=== PATIENT | female | born 2000 | race Caucasian/White ===

== ENCOUNTER 2021-08-03 10:05 | Outpatient (REF) | payer OTHER, SELFPAY ==
[2021-08-04 07:47] LABS: HBc Num1 0.14 S/CO (0.00-0.79); HIV AB/AG Nonreactive (Nonreactive); HIV Num 1 0.09 S/CO (0.00-0.99); Hepatitis B Core Antibody Nonreactive (Nonreactive); ~Hepatitis C Antibody Nonreactive (Nonreactive)
[2021-08-04 07:56] LABS: Syphilis Screen Nonreactive (Nonreactive)
[2021-08-04 09:09] LABS: BV Int Neg Control Negative (Negative); BV Int Pos Control Positive (Positive)
[2021-08-04 10:32] LABS: CT PCR NOT DETECTED (Not Detect.); NG PCR NOT DETECTED (Not Detect.)
== END 2021-08-03 10:06 | disposition home or self-care (01) ==
LOC: HO.LAB 10:05
PROVIDERS: PCP Pediatrics; Visit Provider Advanced Practice Midwife
DX: B00.9 Herpesviral infection, unspecified (principal); N90.89 Other specified noninflammatory disorders of vulva and perineum; R30.0 Dysuria; N88.9 Noninflammatory disorder of cervix uteri, unspecified; Z11.8 Encounter for screening for other infectious and parasitic diseases; Z11.3 Encounter for screening for infections with a predominantly sexual mode of transmission; Z11.4 Encounter for screening for human immunodeficiency virus [HIV]; Z11.59 Encounter for screening for other viral diseases; F41.8 Other specified anxiety disorders
CPT/HCPCS: 36415; 81003; 86704; 86780; 86803; 87255; 87389; 87480; 87491; 87510; 87591; 87660

== ENCOUNTER → 2021-08-18 09:41 | Outpatient (BNVA) | payer OTHER, SELFPAY | PROVIDERS: PCP Pediatrics; Visit Provider Advanced Practice Midwife ==

== ENCOUNTER 2021-11-08 12:22 | Emergency (ER) | payer OTHER, SELFPAY ==
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
[2021-11-08 14:58] VITALS: BP 128/83; PULSE 84; RESP 16; TEMP 36.3; O2SAT 100; BMI 41.3
--- NOTE | 2021-11-08 15:04 | ECG_ITS ---
Test Reason : CHEST PAIN Blood Pressure : / mmHG Vent. Rate : 072 BPM Atrial Rate : 072 BPM P-R Int : 142 ms QRS Dur : 082 ms QT Int : 376 ms P-R-T Axes : 038 018 021 degrees QTc Int : 411 ms Normal sinus rhythm with sinus arrhythmia Normal ECG When compared with ECG of 07-MAR-2019 06:48, No significant change was found Referred By: Generic ED Physician Electronically Signed By:PEARL MENDEZ MD
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
== END 2021-11-08 18:26 | disposition home or self-care (01) ==
PROVIDERS: Emergency Provider Emergency Medicine; PCP Pediatrics
DX: S39.012A Strain of muscle, fascia and tendon of lower back, initial encounter (principal); S09.90XA Unspecified injury of head, initial encounter; S46.911A Strain of unspecified muscle, fascia and tendon at shoulder and upper arm level, right arm, initial encounter; S20.213A Contusion of bilateral front wall of thorax, initial encounter; G44.309 Post-traumatic headache, unspecified, not intractable; M54.2 Cervicalgia; V43.52XA Car driver injured in collision with other type car in traffic accident, initial encounter; Y93.9 Activity, unspecified; Y92.410 Unspecified street and highway as the place of occurrence of the external cause; Y99.9 Unspecified external cause status; Z79.899 Other long term (current) drug therapy
CPT/HCPCS: 70450; 70486; 71111; 72100; 72125; 73060; 73110; 73130; 93005; 99283; 99284

== ENCOUNTER 2023-04-14 09:40 | Outpatient (AMB) | payer OTHER, SELFPAY ==
--- NOTE | 2023-04-14 10:31 | MHC.OFFWIV ---
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 Patient Tobacco Use Status: Never used Tobacco Allergies No Known Allergies [No Known Allergies*] Allergy (Verified 04/14/23 10:33) Do you need a note to return to daycare/school/sports/work: No HPI HPI Comments History of Present Illness Details This is a 22-year-old female who presents to the office today for sick visit. Patient complaining of right ear pain radiating into her right jaw and right neck. She denies any sore throat. She denies any fevers or chills. She reports mild nasal congestion. Patient is otherwise feeling well. She reports positive sick contact with her sister. [facility] Medical History Asthma Depression with anxiety Family History Maternal Aunt History of breast cancer Social History Alcohol intake: current Alcohol intake frequency: holidays/special occasions only Patient Tobacco Use Status: Never used Tobacco Substance Use Type: Marijuana Sexual orientation: Lesbian/Lockhart/Homosexual Gender identity: Female Female Reproductive History Menstrual Age of Menarche: 14 Review of Systems Const All systems reviewed & are unremarkable except as noted in HPI and below Reports no additional complaints Eyes Reports no additional complaints ENT Reports no additional complaints Card Reports no additional complaints Resp Reports no additional complaints GI Reports no additional complaints Reports no additional complaints Musc Reports no additional complaints Skin/Breast Reports system reviewed and no additional complaints, except as documented Neuro Reports no additional complaints Psych Reports no additional complaints Endo Reports no additional complaints Andrea/Lymph Reports no additional complaints Aller/Immun Reports no additional complaints Physical Exam Vital Signs: Last Vital Signs Temp 96.2 F L 04/14/23 10:34 Pulse 81 04/14/23 10:34 BP 138/78 04/14/23 10:34 Pulse Ox 98 04/14/23 10:34 Oxygen Delivery Method Room Air 04/14/23 10:34 BMI result Body Mass Index 43.6 Const Other: Vital signs reviewed. Constitutional: Non-toxic appearing. No acute distress. Well-developed and well-nourished. HEENT: Normocephalic and atraumatic. Right tympanic membrane is erythematous, edematous, and slightly bulging. There is minimal tenderness to palpation and minimal swelling of the right postauricular region. No erythema of the right postauricular region. External auditory canals without erythema or edema bilaterally. Moist mucous membranes. No pharyngeal erythema or exudates. No peritonsillar mass. Skin: Warm and dry. No rashes or lesions noted. Neck: Full and painless range of motion. No cervical lymphadenopathy. Cardio: Regular rate and rhythm. No murmurs, gallops, or rubs. No lower extremity edema. No JVD. Pulmonary: No respiratory distress. No accessory muscle usage. Clear to auscultation bilaterally without wheezing, crackles, or rhonchi. Gastrointestinal: Soft, nontender, and nondistended in all 4 quadrants. Normoactive bowel sounds in all 4 quadrants. Genitourinary: No CVA tenderness. Musculoskeletal: Normal range of motion in joints throughout the body. No deformity or other signs of injury. Neuro: Alert and oriented x4. Cranial nerves 2-12 grossly intact. No focal deficits appreciated. Psych: Normal mood and affect. Assessment & Plan Assessment & Plan (1) Acute otitis media, right: Code(s): H66.91 - Otitis media, unspecified, right ear Plan: This is a 22-year-old female presenting to the office complaining of right ear pain radiating into her right jaw and right neck. On physical examination, patient has erythema, edema, and bulging of her right tympanic membrane as well as minimal tenderness to palpation and swelling of the right postauricular region. I explained to the patient and her mother my concern for acute mastoiditis that can be a complication of acute otitis media and would require more imaging and IV antibiotics. Patient's vital signs are stable and she is overall nontoxic appearing without any evidence of a systemic infection. I did recommend going to the emergency room for further imaging to rule out acute mastoiditis definitively, but patient and her mother would prefer to try oral antibiotics first. I explained the risks of acute mastoiditis if it goes untreated. Patient and her mother understand the risks. Patient is alert and oriented x4 and in my opinion, she has the competence to make her own medical decisions. Patient would prefer not to go to the emergency room at this time. I will treat the patient's acute otitis media with p.o. amoxicillin clavulanate 875-125 mg twice daily times 10 days. I strongly encouraged the patient to proceed directly to the emergency room at the first sign of any systemic infection including fever/chills or general malaise as well as any worsening or persistent symptoms. Patient verbalized understanding and is agreeable with the plan. Medications: New amoxicillin-pot clavulanate 875-125 mg 1 tab PO BID 20 tabs 0RF Coding Level of Care Code New Pt Level 3 (66265) Diagnoses Acute otitis media, right H66.91
[2023-04-14 10:34] VITALS: BP 138/78; PULSE 81; TEMP 35.7; O2SAT 98; BMI 43.6
== END 2023-04-14 11:01 | disposition home or self-care (01) ==
PROVIDERS: PCP Pediatrics; Visit Provider Physician Assistant Medical
DX: H66.91 Otitis media, unspecified, right ear (principal)
CPT/HCPCS: 99203

== ENCOUNTER 2023-08-16 09:05 | Outpatient (AMB) | payer OTHER, SELFPAY ==
[2023-08-16 09:06] VITALS: BP 112/70; BMI 44.3
--- NOTE | 2023-08-16 09:06 | MHC.OFFVIS ---
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 Doing well with no concerns. She tries to eat healthy and stays active with exercise. Regular monthly menses. Currently is sexually active. Using condoms consistently, she is interested possibly in control. She denies vaginal itching and irritation. STI screening offered; she accepts. Denies family history of breast, ovarian or colon cancer. [facility] Medical History Asthma Depression with anxiety Family History Maternal Aunt History of breast cancer Social History Alcohol intake: current Alcohol intake frequency: holidays/special occasions only Patient Tobacco Use Status: Never used Tobacco Substance Use Type: Marijuana Sexually active: Yes Sexual orientation: Straight/Heterosexual Gender identity: Female Female Reproductive History Menstrual Age of Menarche: 14 Duration of menses: 3-5 days Date of last menstrual period: 08/09/23 control method: none Total pregnancies: 0 Review of Systems Const All systems reviewed & are unremarkable except as noted in HPI and below Reports as per HPI Eyes Reports no additional complaints ENT Reports no additional complaints Card Reports no additional complaints Resp Reports no additional complaints GI Reports as per HPI and Reports no additional complaints Reports as per HPI Musc Reports no additional complaints Skin/Breast Reports as per HPI Neuro Reports no additional complaints Psych Reports no additional complaints Endo Reports no additional complaints Andrea/Lymph Reports no additional complaints Aller/Immun Reports no additional complaints Physical Exam Vital Signs: Last Vital Signs BP 112/70 08/16/23 09:06 BMI result Body Mass Index 44.3 Const General: cooperative, healthy appearing, no acute distress, well developed and alert Orientation/consciousness: patient oriented x3 HEENT Head: Yes normal to inspection Eyes General: appearance normal, both eyes and all related structures Neck Neck: Yes normal visual inspection Thyroid: Thyroid normal Chest Chest palpation & inspection: normal inspection of the chest and other (no puckering, dimpling, peau de orange, retraction, discharge, masses) Breast/axilla inspection: normal inspection of the breasts Breast/axilla palpation: normal palpation of the breasts Resp Effort & Inspection: normal respiratory effort GI Inspection: Yes normal to inspection and Yes obesity Palpation (GI): Soft to palpation Rectal Exam - Female: deferred General: Yes bladder normal to palpation External Female Exam: normal external appearance and normal appearance of the urethra Speculum Exam - Vagina: normal appearance of the vagina, normal palpation and normal vaginal discharge Speculum Exam - Cervix: normal appearance of the cervix and normal palpation Bimanual exam- vagina & uterus: normal bimanual exam, normal palpation, uterine size normal, bladder normal to palpation, normal palpation and non-tender Bimanual Exam- Adnexa, other: no masses Skin General skin exam: no rashes or lesions noted Rashes: no rashes Neuro General: patient oriented x3 Cognition (Neuro): normal cognition Extrem General: Yes normal to inspection Psych Attitude: cooperative Thought process: Normal thought process present Assessment & Plan Assessment & Plan (1) Encounter for well woman exam with routine gynecological exam: Code(s): Z01.419 - Encounter for gynecological examination (general) (routine) without abnormal findings Plan Discussed: Current recommendations for pap smears per ASCCP guidelines. Breast awareness and periodic breast exams. Maintain a healthy lifestyle including a well balanced diet and routine exercise. Recommended Mediterranean style diet-handout given. Use condoms for STI and prevention. control options booklet given. Advised to call for consult when ready to discuss control. Sign of her patient portal. All of her questions and concerns were addressed to the best of my ability. RTO in one year for annual occupational health manager examination. This note is constructed using voice recognition software. While every effort has been made to ensure accuracy, technology engineer errors may have been included. Orders: Orders HIV Ab/Ag Today Z20.2 - Contact with and (suspected) exposure to infections with a predominantly sexual mode of transmission Hepatitis C Antibody Today Z20.2 - Contact with and (suspected) exposure to infections with a predominantly sexual mode of transmission Hepatitis B Core Antibody Today Z20.2 - Contact with and (suspected) exposure to infections with a predominantly sexual mode of transmission Syphilis Screen Today Z20.2 - Contact with and (suspected) exposure to infections with a predominantly sexual mode of transmission Coding Level of Care Code Est Pt Prev Care 18-39y(96081) Diagnoses Encounter for well woman exam with routine gynecological exam Z01.419
== END 2023-08-16 09:31 | disposition home or self-care (01) ==
LOC: HO.HWS 09:05
PROVIDERS: PCP Pediatrics; Visit Provider Advanced Practice Midwife
DX: Z01.419 Encounter for gynecological examination (general) (routine) without abnormal findings (principal)
CPT/HCPCS: 99395

== ENCOUNTER 2023-08-16 09:05 | Outpatient (REF) | payer OTHER, SELFPAY | END 2023-08-16 09:06 | disposition home or self-care (01) | LOC: HO.LNP 09:05 | PROVIDERS: PCP Pediatrics; Visit Provider Advanced Practice Midwife | DX: Z01.419 Encounter for gynecological examination (general) (routine) without abnormal findings (principal) | CPT/HCPCS: 88142; 99395 ==

== ENCOUNTER 2023-08-16 09:35 | Outpatient (REF) | payer OTHER, SELFPAY ==
[2023-08-16 10:54] LABS: HBc Num1 0.16 S/CO (0.00-0.79); HIV AB/AG Nonreactive (Nonreactive); HIV Num 1 0.07 S/CO (0.00-0.99); Hepatitis B Core Antibody Nonreactive (Nonreactive); ~HepC Num1 0.12 S/CO (0.00-0.79); ~Hepatitis C Antibody Nonreactive (Nonreactive)
[2023-08-16 10:57] LABS: Syphilis Screen Nonreactive (Nonreactive)
[2023-08-16 12:33] LABS: CT PCR NOT DETECTED (Not Detect.); NG PCR NOT DETECTED (Not Detect.)
== END 2023-08-16 09:36 | disposition home or self-care (01) ==
LOC: HO.LAB 09:35
PROVIDERS: Visit Provider Advanced Practice Midwife
DX: Z11.4 Encounter for screening for human immunodeficiency virus [HIV] (principal); Z20.2 Contact with and (suspected) exposure to infections with a predominantly sexual mode of transmission
CPT/HCPCS: 0353U; 86704; 86780; 86803; 87389

== ENCOUNTER 2025-01-07 08:55 | Outpatient (REF) | payer OTHER, SELFPAY ==
[2025-01-07 16:59] LABS: CT PCR NOT DETECTED (Not Detect.); NG PCR NOT DETECTED (Not Detect.)
== END 2025-01-07 08:56 | disposition home or self-care (01) ==
LOC: HO.LNP 08:55
PROVIDERS: PCP Nurse Practitioner Family; Visit Provider Obstetrics & Gynecology
DX: Z00.01 Encounter for general adult medical examination with abnormal findings (principal); Z76.89 Persons encountering health services in other specified circumstances; Z23 Encounter for immunization; Z01.419 Encounter for gynecological examination (general) (routine) without abnormal findings; F31.62 Bipolar disorder, current episode mixed, moderate; J45.20 Mild intermittent asthma, uncomplicated; E78.2 Mixed hyperlipidemia; E66.01 Morbid (severe) obesity due to excess calories; Z68.41 Body mass index [BMI] 40.0-44.9, adult; H91.93 Unspecified hearing loss, bilateral; Z86.69 Personal history of other diseases of the nervous system and sense organs; Z91.09 Other allergy status, other than to drugs and biological substances; Z13.30 Encounter for screening examination for mental health and behavioral disorders, unspecified; Z13.31 Encounter for screening for depression
CPT/HCPCS: 87491; 87591; 90471; 90715; 96127; 96160; 99202; 99385; 99395

== ENCOUNTER 2025-01-07 08:55 | Outpatient (AMB) | payer OTHER, SELFPAY ==
--- NOTE | 2025-01-07 08:58 | MHC.OFFVIS ---
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 No complaints. 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 Sexual orientation: Straight/Heterosexual Gender identity: Female Female Reproductive History Menstrual Age of Menarche: 14 Date of last menstrual period: 10/22/24 control method: none Total pregnancies: 0 Review of Systems Const All systems reviewed & are unremarkable except as noted in HPI and below Card Reports as per HPI Resp Reports as per HPI GI Reports as per HPI and Reports no additional complaints Reports as per HPI Physical Exam Vital Signs: BMI result Body Mass Index 46.5 Const General: cooperative, healthy appearing and comfortable Chest Chest palpation & inspection: normal inspection of the chest and normal palpation of entire chest wall Breast/axilla inspection: normal inspection of the breasts and normal inspection of the axillae Breast/axilla palpation: normal palpation of the breasts, normal palpation of the axillae and no axillary lymphadenopathy Resp Effort & Inspection: normal respiratory effort Auscultation: clear to auscultation bilaterally Percussion: percussion normal Cardio Palpation: normal PMI Rate: regular rate Rhythm: regular rhythm Heart sounds: no murmurs and no rubs Peripheral pulses: Peripheral pulses 2+ throughout GI Inspection: Yes normal to inspection Palpation (GI): Soft to palpation, nontender, no guarding, not rigid and No hepatosplenomegaly present Percussion: Yes normal to percussion Auscultation: normal bowel sounds Rectal Exam - Female: deferred General: Yes bladder normal to palpation External Female Exam: No lesion Speculum Exam - Vagina: normal appearance of the vagina, normal palpation, normal vaginal discharge and not erythematous Speculum Exam - Cervix: normal appearance of the cervix and normal palpation Bimanual exam- vagina & uterus: normal bimanual exam, normal palpation, uterine size normal, bladder normal to palpation, consistency normal and normal palpation Bimanual Exam- Adnexa, other: normal adnexae, no masses and no tenderness Assessment & Plan Assessment & Plan (1) Well woman exam: Code(s): Z01.419 - Encounter for gynecological examination (general) (routine) without abnormal findings Category: Medical Plan: Pap smear not indicated this year GC/CT collected. Counseled the patient about the recommended dietary allowance of 1000 mg of Calcium & 600 IU of vitamin D. The patient was instructed to perform monthly self-breast exams and to schedule an annual exam in a year; All questions answered and the patient verbalized understanding. Instructed the patient to schedule annual exam in a year Coding Level of Care Code Est Pt Prev Care 18-39y(98192) Diagnoses Well woman exam Z01.419
[2025-01-07 08:59] VITALS: BMI 46.5
--- OUTSIDE RECORDS SUMMARY | 2025-01-07 09:28 | XMS_ITS | Encounter Summary ---
Author Organization [facility] Address [address] [place] [address] Phone Care Team Providers Care Automobile Engine Assembler Name Role Phone Chris Wilson MD Primary Care Provider [phone] Encounter Details Date Type Department Care Team (Late st Contact Info) Description 03/09/2017 Conversion Encounter [facility] [place] [address] [place] [address] Social History Tobacco Use Types Packs/Day Years Used Date Smoking Tobacco: Never Comments:Never smoker Comments Unknown Sex and Gender Information Value Date Recorded Sex Assigned at Female 11/12/2019 10:41 AM EDT Legal Sex Female 5:22 PM EDT Gender Identity Other 09/08/2020 5:33 PM EST Sexual Orientation pansexual 12/07/2020 10 :51 AM EDT documented as of this encounter Plan of Treatment Not on file documented as of this encounter Visit Diagnoses Not on filedocumented in this encounter Care Teams Automobile Engine Assembler Relationship Specialty Start Date End Date Chris Wilson MD [address] [place] [address] PCP - General 03/03/17 01/10/23 documented as of this encounter
== END 2025-01-07 09:17 | disposition home or self-care (01) ==
PROVIDERS: PCP Nurse Practitioner Family; Visit Provider Obstetrics & Gynecology
DX: Z01.419 Encounter for gynecological examination (general) (routine) without abnormal findings (principal)
CPT/HCPCS: 99395; 99459

== ENCOUNTER 2025-01-07 10:42 | Outpatient (AMB) | payer OTHER, SELFPAY ==
--- NOTE | 2025-01-07 10:46 | MHC.PC.OV ---
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: No Allergies No Known Allergies [No Known Allergies*] Allergy (Verified 01/07/25 11:05) Medication List - Last Reconciled 01/07/25 by HAYLEE OrantesP- albuterol sulfate 90 mcg/actuation (Ventolin HFA) 2 puffs inhalation Q4-6H PRN cetirizine 10 mg PO DAILY clonidine HCl 0.1 mg PO TID fluticasone propionate 50 mcg/actuation sprays intranasal ipratropium-albuterol 0.5 mg-3 mg(2.5 mg base)/3 mL mL inhalation prazosin 1 mg PO BEDTIME quetiapine 100 mg PO BEDTIME risperidone 1 mg PO BID Tobacco use date assessed: 01/07/25 Dental Screening Dental Screen Date: 01/07/25 Did you have a dental visit in the last 12 months?: No Did you have a dental problem in the last 6 months where you did not have access to dental care?: No Was dental information given to patient?: Yes HPI HPI Comments History of Present Illness Details 24-year-old female obesity, HLD, Asthma, Bipolar disorder Surgery: None Social: works at [employer], lives w/ family Health Maintenance: PAP 2023 at [facility] Tdap admin today Specialists: [employer]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 [facility] Audio for hearing test History of Present Illness - The patient is a 24-year-old female presenting with establishment of care and for a CPE - Previous PCP: Joss Pereira, records rec'd and reviewed. - Asthma: Uses albuterol as needed; symptoms triggered by weather changes. - Obesity: Seeks medical weight management, prefers medication start. - Bipolar Disorder: Stable on medications, previous medication noncompliance led to crisis intervention. - Anxiety: Experiences blackouts during panic attacks, managed by psychiatrist. - Ear infections: Recurrent infections with right ear predominantly affected & having sx now; endorses decreased hearing bilat, worse on R that is chroninc. - Asking for [employer] services; spends too much money, so needs help w this Social History - Lives with family and feels safe at home. 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 - Managed by psychiatrist and therapist for mental health. - Interested in weight management interventions similar to her mother's experience with weight loss surgery. Health Maintenance - Tetanus and whooping cough (Tdap) vaccination discussed and to be administered. - Follow-up for hearing test and weight management referral initiated. - Laboratory screenings for diabetes and cholesterol offered for health monitoring. Review of Systems - Respiratory: Reports occasional use of inhaler for asthma exacerbations. - Psychiatric: Reports anxiety, blackouts during panic attacks, managed by a therapist. - Ears: Reports recurrent ear infections, affecting hearing. - General: Denies recent surgeries and feels overall functional in social environments. Physical Exam General: Well developed, well nourished, in no acute distress. Appears stated age. Head: Normocephalic, atraumatic. Eyes: Pupils are equal, round and reactive to light and accommodation. Conjunctivae are clear. Vision grossly normal. Ears: TM intact bilat, erythematous,loss of landmarks on R, normal on L Nose: Patent, without discharge. Neck: Supple, no adenopathy or thyromegaly. Breast: Edu on SBE Lungs: Clear to auscultation bilaterally. No rales, rhonchi or wheeze noted. Good air flow in all hernandez. Heart: Regular rate and rhythm. No murmurs, click, rubs or gallops are noted. Abdomen: Bowel sounds present in all quadrants. The abdomen is soft, nontender, with no masses or organomegaly noted. No hernias are noted. : Deferred. 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 Extremities: No clubbing, cyanosis nor edema is noted. Neurologic: Gait and station normal. Cranial Nerves 2-12 intact. Motor strength grossly symmetrical and intact. No sensory loss. Balance normal. Skin: No rashes, ulcers, or lesions noted. Turgor is good. Skin color is good. Hair and nails are without abnormalities. Psych: Normal eye contact, affect and mood appropriate, and normal interactions. Patient is alert and appropriate to context. Results - Labs: Upcoming screenings for diabetes and cholesterol. - Tests: Hearing test referral placed. - Tests: Referral for weight management. Discussion Notes I reviewed the patient's health status, current management, and new concerns. We discussed potential medication options for weight management at [facility] and opted to begin with pharmacotherapy first. We outlined the importance of continued psychiatric support and approved current mental health medications. We acknowledged the reported side effects on weight and strategized to focus on medical weight management initially. Discussion included a potential future surgical consultation for weight loss. We addressed the patient's recurrent ear infections, recommending a thorough ear evaluation and hearing test. I discussed the Tdap vaccine's benefits, especially given her asthma. Patient provided informed consent for the vaccination, and a prescription for Augmentin was given to treat the ear infection. A referral was placed for [employer] assistance in [place] to address disorientations and spending concerns. We planned lab screenings for diabetes and cholesterol and arranged for follow-up care with all respective coordinations. Assessment and Plan 1. Mild Intermittent Asthma - Albuterol inhaler refill. 2. Obesity - Medical weight management referral. 3. Bipolar Disorder - Maintain psychiatric meds. Cont care w/ team 4. Recurrent Acute Otitis Externa - Augmentin prescription, hearing test referral. 5. sDOH - i have placed referral to [facility] to help assess appropriateness and need for things such as [employer]. She is physically Ind. She lives w/ family who can provide support. 6. Health Maintenance - Administered Tdap vaccine, lab screenings planned. Patient Instructions - Use asthma inhaler as needed for wheezing or shortness of breath. - Attend follow-up weight management program. - Take prescribed ear infection medication with food. - Get diabetes and cholesterol labs done today. - Follow up with your psychiatrist and therapist as scheduled. - Call the clinic with any concerns or if symptoms worsen. RTO 1 YEAR CPE, SOONER PRN Consent Patient was informed and verbally consented to the use of an ambient scribe for clinic note documentation during this visit. An additional 30 minutes was spent addressing the problem(s) noted at todays visit. This includes time spent before the visit reviewing the chart, time spent during the visit, and time spent after the visit on documentation reviewing laboratory results, diagnostic imaging, medications, performing a medically necessary evaluation, counseling on diagnoses, care coordination, ordering appropriate tests, ordering appropriate medications, review of tests performed by other providers, reporting test results with the patient, communication with other healthcare providers. [facility] Medical History (Updated 01/07/25 @ 11:30 by [facility] Asthma Depression with anxiety Schizoaffective disorder Surgical History (Updated 01/07/25 @ 11:03 by Bipin Barahona MA) No pertinent past surgical history Family History (Updated 01/07/25 @ 11:04 by Bipin Barahona MA) Maternal Aunt History of breast cancer Mother Asthma Paternal Grandfather Diabetes Social History (Updated 01/07/25 @ 10:47 by Bipin Barahona MA) Household Members: Family Housing: House Are you a primary home care companion to a significant other at home: No Do you presently have visiting nurse or other home services: No Alcohol intake: current Alcohol intake frequency: a few times a month Patient Tobacco Use Status: Never used Tobacco e-Cigarette/Vaping Use: Never Used Second Hand Smoke Exposure: No Substance Use Type: Marijuana Current occupational status: employed 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 1. Little interest or pleasure in doing things: more than half the days 2. Feeling down, depressed, or hopeless: more than half the days 3. Trouble falling or staying asleep, or sleeping too much: several days 4. Feeling tired or having little energy: more than half the days 5. Poor appetite or overeating: nearly every day 6. Feeling bad about yourself - or that you are a failure or have let yourself or your family down: more than half the days 7. Trouble concentrating on things, such as reading the newspaper or watching television: several days 8. Moving or speaking so slowly that other people could have noticed. Or the opposite - being so fidgety or restless that you have been moving around a lot more than usual: several days 9. Thoughts that you would be better off or of hurting yourself in some way: several days Total score: 15 Depression Screening Interpretation: Positive Depression Screening Follow-up: Existing condition and In treatment Depression Screening Done: Yes 12438 - PHQ-9 Billing: Yes Source: Developed by Drs. Bijan Bullard, Ania Mcgrath, eHma Childress and colleagues, with an educational chilo from [employer]. Thrive Questionnaire Date Thrive assessed: 01/07/25 I am a: Patient What is your living situation today?: I have a steady place to live Within the past 12 months, did the food you bought not last and you didn't have the money to get more?: Never true Within the past 12 months, did you worry whether your food would run out before you got money to buy more?: Never true Do you have trouble paying for medicines?: No Do you have trouble getting transportation to medical appointments?: No Do you have trouble paying your heating and electricity bill?: No Do you have trouble taking care of your child, family member or friend?: No Do you have trouble with day-to-day activities such as bathing, preparing meals, shopping, managing finances, etc.?: Yes Are you currently unemployed and looking for a job?: No Are you interested in more education?: Yes Please select the resources that you would like help with: Daily support Currently or been in a relationship where the following occur: No concerns reported THRIVE Score: 0 AUDIT C Alcohol Use Questionnaire (AUDIT-C) 1. How often do you have a drink containing alcohol?: 2-4 times a month 2. How many drinks containing alcohol do you have on a typical day when you are drinking?: 3 or 4 3. How often do you have six or more drinks on one occasion?: Less than monthly Total Score: 4 Score Reviewed/Action Taken: Yes CARLIE-7 AMB Questionnaire CARLIE-7 Date CARLIE - 7 assessed: 01/07/25 Feeling nervous, anxious, or on edge: 3 = Nearly every day Not being able to stop or control worryin = Nearly every day Worrying too much about different things: 3 = Nearly every day Trouble relaxin = Nearly every day Being so restless that it is hard to sit still: 2 = More than half the days Becoming easily annoyed or irritable: 3 = Nearly every day Feeling afraid as if something awful might happen: 3 = Nearly every day Total CARLIE-7 score (0-4 normal; 5-9 mild; 10-14 moderate; 15-21 severe): 20 Source: Developed by Drs. Bijan Bullard, Ania Mcgrath, Hema Childress and colleagues, with an educational chilo from [employer]. CARLIE-7 Assessment Billing CARLIE-7 Assessment Tool: CARLIE-7 Assessment 37051 ACT Questionnaire In the past 4 weeks, how much of the time did your asthma keep you from getting as much done at work, school or at home?: None of the time During the past 4 weeks, how often have you had shortness of breath?: Not at all During the past 4 weeks, how often did your asthma symptoms wake you up at night or earlier than usual in the morning?: Not at all During the past 4 weeks, how often have you had to use your rescue inhaler or nebulizer medication?: Not at all How would you rate your asthma control during the past 4 weeks?: Completely controlled ACT Interpretation: Negative Score: 25 Physical exam (Primary Care) Vital Signs: Last Vital Signs Temp 97.6 F 01/07/25 11:00 Pulse 94 01/07/25 11:00 Resp 12 01/07/25 11:00 BP 122/70 01/07/25 11:00 Pulse Ox 97 01/07/25 11:00 Oxygen Delivery Method Room Air 01/07/25 11:00 BMI result Body Mass Index 42.8 BMI Assessment/Plan discussion: High BMI High, discussed plan: lifestyle Tobacco/Smoking Status: Tobacco use Status Tobacco use date assessed 01/07/25 01/07/25 10:50 Patient Tobacco Use Status Never used Tobacco 01/07/25 10:50 e-Cigarette/Vaping Use Never Used 01/07/25 10:50 PHQ-9: PHQ-9 Score PHQ-9: Total score 15 01/07/25 11:05 Depression Screening Interpretation: Positive Depression Screening Follow-up: Existing condition and In treatment Thrive Assessment: Date of Thrive Assessment Date Thrive assessed 01/07/25 01/07/25 10:50 Currently or been in a relationship where the following occur: No concerns reported Immunizations Boostrix Tdap 2.5 Lf unit-8 mcg-5 Lf/0.5 mL intramuscular syringe Performing Provider: MIKE Orantes Performing Location: [facility] Administered by: Bipin Barahona MA on 01/07/25 11:29 Dose Route Admin Location Dispensed Lot Number Expiration Date NDC Hazardous Waste Management Specialist 0.5 mL IM Left Deltoid 0.5 mL [id number] 03/19/27 36419-679-10 Symphogen VIS Given Date VIS Provided VIS Publication Date 01/07/25 Single Vaccine 21 Eligibility Eligibility Date Funding Source Not [facility] Eligible 01/07/25 Private Coding Level of Care Code New Pt Level 3 (85761) New Pt Prev Care 18-39yr(43822 Diagnoses Encounter for general adult medical examination with abnormal findings Z00.01 Bipolar disorder, current episode mixed, moderate F31.62 Active/Remission status: currently active Current bipolar episode type: mixed Current episode severity: moderate Mild intermittent asthma in adult without complication J45.20 Environmental allergies Z91.09 Mixed hyperlipidemia E78.2 Hyperlipidemia type: mixed hyperlipidemia Obesity, morbid, BMI 40.0-49.9 E66.01 Need for Tdap vaccination Z23 History of recurrent ear infection Z86.69 Bilateral hearing loss, unspecified hearing loss type H91.93 Hearing loss type: unspecified Laterality: bilateral Encounter for screening involving social determinants of health (SDoH) Z13.9 Laboratory exam ordered as part of routine general medical examination Z00.00 Encounter to establish care Z76.89 Additional Codes CARLIE-7 Assessment Billing - CARLIE-7 Assessment Tool: CARLIE-7 Assessment 54883 ([id number]) PHQ-9 - 46766 - PHQ-9 Billing: Yes ([id number]) Asthma Control Questionnaire - ACT Interpretation: Negative ([id number]) Assessment & Plan Assessment & Plan (1) Encounter for general adult medical examination with abnormal findings: Onset Date: ~01/07/25 Code(s): Z00.01 - Encounter for general adult medical examination with abnormal findings Category: Medical (2) Bipolar disorder: Code(s): F31.9 - Bipolar disorder, unspecified Category: Medical Qualifiers: Active/Remission status: currently active Current bipolar episode type: mixed Current episode severity: moderate Qualified Code(s): F31.62 - Bipolar disorder, current episode mixed, moderate (3) Mild intermittent asthma in adult without complication: Code(s): J45.20 - Mild intermittent asthma, uncomplicated Category: Medical (4) Environmental allergies: Code(s): Z91.09 - Other allergy status, other than to drugs and biological substances Category: Medical (5) HLD (hyperlipidemia): Code(s): E78.5 - Hyperlipidemia, unspecified Category: Medical Qualifiers: Hyperlipidemia type: mixed hyperlipidemia Qualified Code(s): E78.2 - Mixed hyperlipidemia (6) Obesity, morbid, BMI 40.0-49.9: Code(s): E66.01 - Morbid (severe) obesity due to excess calories Category: Medical (7) Need for Tdap vaccination: Code(s): Z23 - Encounter for immunization Category: Medical (8) History of recurrent ear infection: Code(s): Z86.69 - Personal history of other diseases of the nervous system and sense organs Category: Medical (9) Hearing loss: Code(s): H91.90 - Unspecified hearing loss, unspecified ear Category: Medical Qualifiers: Hearing loss type: unspecified Laterality: bilateral Qualified Code(s): H91.93 - Unspecified hearing loss, bilateral (10) Encounter for screening involving social determinants of health (SDoH): Code(s): Z13.9 - Encounter for screening, unspecified Category: Medical (11) Laboratory exam ordered as part of routine general medical examination: Code(s): Z00.00 - Encounter for general adult medical examination without abnormal findings Category: Medical (12) Encounter to establish care: Code(s): Z76.89 - Persons encountering health services in other specified circumstances Plan . Orders: Orders TSH reflex Free T4 Today Z00.00 - Encounter for general adult medical examination without abnormal findings TDaP Immunization Today Z23 - Encounter for immunization Comprehensive Met. Panel Today Z00.00 - Encounter for general adult medical examination without abnormal findings Hemoglobin A1c Today Z00.00 - Encounter for general adult medical examination without abnormal findings Lipid Panel Today Z00.00 - Encounter for general adult medical examination without abnormal findings Referrals Nurse Navigator Referral F31.9 - Bipolar disorder, unspecified Audiology Referral H91.90 - Unspecified hearing loss, unspecified ear, Z86.69 - Personal history of other diseases of the nervous system and sense organs Medical Weight Management Referral E66.01 - Morbid (severe) obesity due to excess calories Medications: New fluticasone propionate 50 mcg/actuation 1 spray intranasal BID 16 grams 0RF amoxicillin-pot clavulanate 875-125 mg 1 tab PO BID 7 days 14 tabs 0RF albuterol sulfate 90 mcg/actuation (Ventolin HFA) 2 puffs inhalation Q4-6H PRN 6.7 grams 1RF shortness of breath or wheezing cetirizine 10 mg PO DAILY 90 tabs 2RF Boostrix Tdap (diphth,pertus(acell),tetanus) 0.5 mL IM ONCE 0.5 mL 0RF NS Z23 - Encounter for immunization Patient Instructions: Walk-In Care (Urgent Care): We Make it Easy Walk-in for urgent medical issues such as: ? Seasonal Allergies ? Insect Bites ? Cough ? Diarrhea ? Acute Asthma Attacks ? Back, Knee or Joint Pain ? Ear Infection ? Fever without a Rash ? Headaches ? Nausea ? [place], Rash or Skin Irritation ? Sore Throat ? Sports Physicals ? Vomiting Most insurances are accepted. Patients do not need to be part of the [facility] to seek care at the walk-in clinic. Locations [facility] , [place] [address] ? [phone] [facility] Walk-In Care in [place] provides services to ages 18 and over. Open Monday-Monday: 8 a.m. to 5 p.m. and Monday: 9 a.m. to 3 p.m.* *Hours may vary due to staffing availability. To confirm Walk-In Care hours in [place], please call [phone]. [address] [place] [address] ? [phone] [facility] Walk-In Care in [place] provides services to ages 12 and over. Open Monday-Monday: 8 a.m. to 5 p.m. Hours may vary due to staffing availability. To confirm Walk-In Care hours in [place], please call [phone]. LABORATORY SERVICES: [facility] Lab ? Primary Location [address] [place] [address] Monday through Monday 6:00 AM ? 5:00 PM Monday 7:00 AM ? 11:00 AM* [phone] The [facility] Lab is centrally located near the front entrance of the [facility] for easy outpatient access. Convenient parking is provided for outpatients. *Hours may vary due to staffing availability. To confirm Laboratory hours for any location, please call [phone]. Offsite Location For your convenience, we offer offsite laboratory draw stations at the following locations: [address] [facility] [place] [address] [facility], [address], [place] Monday through Monday 7:30 AM ? 1:00 PM* [phone] *Hours may vary due to staffing availability. To confirm Laboratory hours for any location, please call [phone]. [place] ? [facility] [address] [facility] [place] Monday through Monday 6:00 AM ? 3:30 PM* Monday 6:30 AM ? 3 PM* [phone] *Hours may vary due to staffing availability. To confirm Laboratory hours for any location, please call [phone]. [address] [facility] Monday through Monday 7:30 AM ? 4:00 PM* [phone] *Hours may vary due to staffing availability. To confirm Laboratory hours for any location, please call [phone] [place] [address] Monday through 9:00 AM ? 4:00 PM* *Hours may vary due to staffing availability. To confirm Laboratory hours for any location, please call [phone]. Appointments are not necessary. Walk-ins are welcome. Like all the departments throughout the [facility], our Lab undergoes frequent reviews to ensure the quality and accuracy of test results, and our staff takes special pride in its status as a nationally accredited facility. Patient Portal: ONE PATIENT. ONE RECORD. BETTER CARE. [facility] has a fully integrated, cutting-edge mobile electronic health information system that has revolutionized the way we care for our patients and manage our organization. This system improves communication and coordination enabling us to provide safe, higher-quality care, and an overall positive experience for staff and patients. Our first priority, as always, is to deliver the highest quality care possible. The system is running in the background supporting that priority. This portal is for all [facility] services and practices. If you are experiencing any technical difficulties with enrolling or logging into the Patient Portal please complete the [facility] Patient Portal Technical Support Form. [facility] now offers a new secure on-line interactive tool for patients to review their health information ? ?Patient Portal. This interactive web portal will enable patients and their families to take an active role in their care by providing easy, secure access to their health information via the internet. The Patient Portal provides patients with instant access to their health information, including laboratory results, medications, allergies, demographic information, visit history, and more. In addition to managing their own care, parents and health care proxies with authorized consent will appreciate the ability to access the records of those individuals for whom they provide care. Please note: if you wish to gain access (Proxy) to another patient?s portal, you will be required to come to the Medical Records Department in person at [facility]. Both the patient giving proxy access and the proxy will need to provide photo identification and complete the appropriate authorization. The Patient Portal also allows track their appointments online. The [facility] Patient Portal also saves patients time by allowing them to submit updates to their demographic and contact information prior to their visits. Portal email notifications will also alert patients to any new activity on their portal, such as test results and new appointments. In order to initially enroll in the [facility] Patient Portal, you will need to enter some required information including the following: your [facility] Medical Record number your personal home email address name date of Please note: In order to enroll in the [facility] Patient Portal, we need to have your email address on file in your electronic medical record. ?The email address needs to be specific for one person (yourself) in order for your Portal enrollment to be successful. ?You can update your email address in person with our Registration staff when you are registering for a hospital visit. ?Otherwise, you will need to come to the Health Information Management (Medical Records) Department at [facility]. ?We are open from Monday ? Monday from 7:30 a.m. ? 4:30 p.m. ?You will be required to present a photo id. Once you have successfully enrolled in the Patient Portal, you will receive a one-time user id and password for the Portal, sent to your email address. ?This will allow you to log into the Patient Portal within 99 hrs and reset your own logon id and password, and define personal security questions. ?Once your permanent login and password have been set, you can log into the [facility] Patient Portal at any time via the blue button above or from the Portal Logon button on any page of the [facility] website. [facility] and [facility] encourage all of our patients to enroll in Patient Portal as it presents a valuable opportunity for patients and their families to actively participate in their care and stay healthy Welcome to [facility]. ?We look forward to working with you. Health screenings for women You should visit your health care provider from time to time, even if you are healthy. The purpose of these visits is to: Screen for medical issues Assess your risk for future medical problems Encourage a healthy lifestyle Update vaccinations and other preventive care services Help you get to know your provider in case of an illness Information Even if you feel fine, you should still see your provider for regular checkups. These visits can help you avoid problems in the future. For example, the only way to find out if you have high blood pressure is to have it checked regularly. High blood sugar and high cholesterol levels also may not have any symptoms in the early stages. A simple blood test can check for these conditions. There are specific times when you should see your provider or receive specific health screenings. The US Preventive Services Task Force publishes a list of recommended screenings. Below are screening guidelines for women ages 18 to 39. BLOOD PRESSURE SCREENING Your blood pressure should be checked at least once every 3 to 5 years if: Your blood pressure is in the normal range (top number less than 120 mm Hg and bottom number less than 80 mm Hg) You don't have risk factors for high blood pressure Ask your provider if you need your blood pressure checked more often if: The top number is 120 to 129 mm Hg or the bottom number is 70 to 79 mm Hg You have diabetes, heart disease, kidney problems, are overweight, or have certain other health conditions You have a first-degree relative with high blood pressure You are Black You had high blood pressure during a If the top number is 130 mm Hg or greater or the bottom number is 80 mm Hg or greater, this is considered stage 1 hypertension. Schedule an appointment with your provider to learn how you can reduce your blood pressure. Watch for blood pressure screenings in your area. Ask your provider if you can stop in to have your blood pressure checked. BREAST CANCER SCREENING Experts do not agree about the benefits of breast self-exams in finding breast cancer or saving lives. Talk to your provider about what is best for you. A screening mammogram is not recommended for most women under age 40. Your provider may discuss and recommend mammograms, MRI scans, or ultrasounds if you have an increased risk for breast cancer, such as: A mother or sister who had breast cancer at a young age (most often starting screening earlier than the age the close relative was diagnosed) You carry a high-risk genetic marker CERVICAL CANCER SCREENING Cervical cancer screening should start at age 21 years unless your provider advises otherwise. After the first test: Women ages 21 through 29 should have a Pap test every 3 years. Exoprts do not agree on whether HPV testing is recommended for this age group. Women ages 30 through 65 should be screened with either a Pap test every 3 years or the HPV test every 5 years or both tests every 5 years (called cotesting ). Women who have been treated for precancer (cervical dysplasia) should continue to have Pap tests for 20 years after treatment or until age 65, whichever is longer. If you have had your uterus and cervix removed (total hysterectomy), and you have not been diagnosed with cervical cancer or precancer (high grade cervical neoplasia), you do not need cervical cancer screening. CHOLESTEROL SCREENING Cholesterol screening should begin at: Age 45 for women with no known risk factors for coronary heart disease Age 20 for women with known risk factors for coronary heart disease Repeat cholesterol screening should take place: Every 5 years for women with normal cholesterol levels More often if changes occur in lifestyle (including weight gain and diet) More often if you have diabetes, heart disease, kidney problems, or certain other conditions DIABETES SCREENING You should be screened for diabetes starting at age 35 and then repeated every 3 years if you have no risk factors for diabetes. Screening may need to start earlier and be repeated more often if you have other risk factors for diabetes, such as: You have a first degree relative with diabetes. You are overweight or have obesity. You have high blood pressure, prediabetes, or a history of heart disease. Screening for diabetes should be done if you are planning to become and you are overweight and have other risk factors such as high blood pressure. DENTAL EXAM Go to the dentist once or twice every year for an exam and cleaning. Your dentist will evaluate if you need more frequent visits. EYE EXAM Have an eye exam every 5 to 10 years before age 40. If you have vision problems, have an eye exam every 2 years or more often if recommended by your provider. You should have an eye exam that includes an examination of your retina (back of your eye) at least every year if you have diabetes. IMMUNIZATIONS Commonly needed vaccines include: Flu shot: get one every year. COVID-19 vaccine: ask your provider what is best for you. Tetanus-diphtheria and acellular pertussis (Tdap) vaccine: have one at or after age 19 as one of your tetanus-diphtheria vaccines if you did not receive it as an adolescent. Tetanus-diphtheria: have a booster (or Tdap) every 10 years. Varicella vaccine: receive 2 doses if you never had chickenpox or the varicella vaccine. Hepatitis B vaccine: receive 2, 3, or 4 doses, depending on your exact circumstances. Measles, mumps, and rubella (MMR) vaccine: receive 1 to 2 doses if you are not already immune to MMR. Your provider can tell you if you are immune. Ask your provider about the human papillomavirus (HPV) vaccine if: You have not received the HPV vaccine in the past You have not completed the full vaccine series (you should catch up on this shot) Ask your provider if you should receive other immunizations if you have certain health problems that increase your risk for some diseases such as pneumonia. INFECTIOUS DISEASE SCREENING Women who are sexually active should be screened for chlamydia and gonorrhea up until age 25. Women 25 years and older should be screened for chlamydia and gonorrhea if at high risk. Screening for hepatitis C: All adults ages 18 to 79 should get a one-time test for hepatitis C. people should be screened at every . Screening for human immunodeficiency virus (HIV): All people ages 15 to 65 should get a one-time test for HIV. Depending on your lifestyle and medical history, you may also need to be screened for infections such as syphilis and HIV, as well as other infections. PHYSICAL EXAM All adults should visit their provider from time to time, even if they are healthy. The purpose of these visits is to: Screen for disease Assess your risk of future medical problems Encourage a healthy lifestyle Update your vaccinations and other preventive care services Maintain a relationship with a provider in case of an illness Your height, weight, and BMI should be checked at every exam. During your exam, your provider may ask you about: Depression and anxiety Diet and exercise Alcohol and tobacco use Safety issues, such as using seat belts, smoke detectors, and intimate partner violence Your medicines and risk for interactions SKIN SELF-EXAM Your provider may check your skin for signs of skin cancer, especially if you're at high risk, such as if you: Have had skin cancer before Have close relatives with skin cancer Have a weakened immune system OTHER SCREENING Talk with your provider about colon cancer screening if you have a strong family history of colon cancer or polyps, or if you have had inflammatory bowel disease or polyps yourself. Routine bone density screening of women under 40 is not recommended. National Suicide and Crisis Lifeline: Available 24 hours a day, 7 days a week, 365 days a year Dial 988 with any telephone to speak to someone immediately [address] [address] , Walk [facility] (Mental / Behavioral health therapist: [address] [place] [address] Formerly [facility] ([facility]) at [facility]: [address] [place] [address] Open from 10am - 12pm (walk ins keyser) [facility] Crisis Services: [address] [place] [address] Walk in hours from 10am - 12pm Behavioral health Network: [address] [place] [address] [place] [address] Monday through Monday 8am - 8pm Monday and Monday 9am - 5pm Crisis Hotlines Suicide prevention, domestic violence, and other crisis hotlines for youth, young adults, and their friends and families. National Runaway Safeline: The National Runaway Safeline helps youth who have run away, are thinking about running away, or who already ran away but are ready to come home. Parents and guardians can also contact the hotline if they are worried about their child running away or if their child has already left home. The hotline is available 24 hours a day, seven days a week. Youth, parents, and guardians can also use the online chat feature on the Runaway Safeline's website to ask for help and get support, [place] [address]. National Runaway Safeline National Suicide Prevention Lifeline: The National Suicide Prevention Lifeline is a network of local crisis centers that are available 13/02 to provide support for youth and adults who are in any kind of emotional crisis. In addition to the main hotline number listed above, there are several other numbers to call depending on your needs: Comoran Language: Deaf and Hard of Hearin1-164.736.6956 Veterans: Disaster Distress: Anyone can also use their online chat feature on their website. [place] Suicide Prevention Lifeline [facility] Helpline: The [facility] Helpline is available to anyone in [place] who is need of emotional support. Anyone can call or text the helpline to receive help from specially trained volunteers. [place] high school and college students can also get online support through the IMHear_ program. For high school students, volunteers ages 15-18 are available Monday- from 6-9PM. For college students, IMHear_ is available Monday-Monday from 5-9PM. The Skyler Project - The Skyler Project is a 13/02 crisis intervention and suicide prevention hotline for LGBTQ youth. Youth can also text Skyler to for support, or use the online chat feature on the Skyler Project's website. TrevorText is available Monday-Monday between 3-10PM. TrevorChat is available seven days a week between 3-10PM. SafeLink: SafeLink is for anyone who is being affected by domestic violence or dating violence. Volunteers at SafeLink speak Romanian and Com[place]an, and [employer] also has a service that can provide translation in more than 130 languages. TTY:
[2025-01-07 11:00] VITALS: BP 122/70; PULSE 94; RESP 12; TEMP 36.4; O2SAT 97; BMI 42.8
== END 2025-01-07 11:44 | disposition home or self-care (01) ==
LOC: HO.HMCFM 10:43
PROVIDERS: PCP Nurse Practitioner Family; Visit Provider Nurse Practitioner Family
DX: Z00.01 Encounter for general adult medical examination with abnormal findings (principal); J45.20 Mild intermittent asthma, uncomplicated; F31.62 Bipolar disorder, current episode mixed, moderate; E66.01 Morbid (severe) obesity due to excess calories; Z68.41 Body mass index [BMI] 40.0-44.9, adult; Z91.09 Other allergy status, other than to drugs and biological substances; E78.2 Mixed hyperlipidemia; Z23 Encounter for immunization; Z86.69 Personal history of other diseases of the nervous system and sense organs; H91.93 Unspecified hearing loss, bilateral; Z76.89 Persons encountering health services in other specified circumstances

== ENCOUNTER 2025-01-07 11:30 | Outpatient (REF) | payer OTHER, SELFPAY ==
[2025-01-07 14:49] LABS: Alanine Aminotransferase 42 U/L (0-31); Albumin Level 4.2 g/dL (3.5-5.0); Alkaline Phosphatase 51 U/L (39-117); Anion Gap 12 (12-20); Aspartate Amino Transferase 45 U/L (5-31); Bilirubin Total 0.4 mg/dL (0.0-1.0); Blood Urea Nitrogen 10 mg/dL (9-16); Calcium 9.7 mg/dL (8.4-10.2); Carbon Dioxide 24 mmol/L (22-29); Chloride 106 mmol/L (96-108); Cholesterol 196 mg/dL (<200); Estimated Glomerular Filt Rate > 60; Glucose Random 81 mg/dL (60-115); HDL Cholesterol 33 mg/dL (>40); LDL Cholesterol Calculated 128 mg/dL (<100); Potassium 4.2 mmol/L (3.3-5.1); Sodium 138 mmol/L (135-145); Total Protein 7.7 g/dL (6.5-8.0); Triglycerides 178 mg/dL (<150)
[2025-01-07 14:50] LABS: Estimated Average Glucose 111 mg/dL; Hemoglobin A1c % 5.5 % (<6.0)
[2025-01-07 15:04] LABS: TSH reflex Free T4 1.49 uIU/mL (0.32-4.0)
== END 2025-01-07 11:31 | disposition home or self-care (01) ==
LOC: HO.WFDLDS 11:30
PROVIDERS: Visit Provider Nurse Practitioner Family
DX: Z00.00 Encounter for general adult medical examination without abnormal findings (principal)
CPT/HCPCS: 36415; 80053; 80061; 83036; 84443

== ENCOUNTER 2025-02-17 08:54 | Outpatient (REF) | payer OTHER, SELFPAY ==
--- OUTSIDE RECORDS SUMMARY | 2025-02-17 09:27 | XMS_ITS | Encounter Summary ---
Author Organization [facility] Address [address] [place] [address] Phone Care Team Providers Care Senior Qa Analyst Name Role Phone Chris Wilson MD Primary Care Provider [phone] Encounter Details Date Type Department Care Team (Late st Contact Info) Description 03/09/2017 Conversion Encounter [facility] [place] [address] [place] [address] Social History Tobacco Use Types Packs/Day Years [...] on filedocumented in this encounter Care Teams Senior Qa Analyst Relationship Specialty Start Date End Date Chris Wilson MD [address] [place] [address] PCP - General 03/03/17 01/10/23 documented as of this encounter
== END 2025-02-17 08:55 | disposition home or self-care (01) ==
LOC: HO.SH 08:54
PROVIDERS: Visit Provider Nurse Practitioner Family
DX: Z01.118 Encounter for examination of ears and hearing with other abnormal findings (principal); H90.0 Conductive hearing loss, bilateral
CPT/HCPCS: 92557; 92567

== ENCOUNTER 2025-02-18 14:59 | Outpatient (AMB) | payer OTHER, SELFPAY ==
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
--- OUTSIDE RECORDS SUMMARY | 2025-02-18 15:49 | XMS_ITS | Encounter Summary ---
Author Organization [facility] Address [address] [place] [address] Phone Care Team Providers Care Patrol Inspector Name Role Phone Chris Wilson MD Primary Care Provider Encounter Details Date Type Department Care Team (Late st Contact Info) Description 03/09/2017 Conversion Encounter [facility] [place] [address] [place] [address] Social History Tobacco Use Types Packs/Day Years [...] on filedocumented in this encounter Care Teams Patrol Inspector Relationship Specialty Start Date End Date Chris Wilson MD [address] [place] [address] PCP - General 03/03/17 01/10/23 documented as of this encounter
== END 2025-02-18 15:17 | disposition home or self-care (01) ==
LOC: HO.HMCFM 14:59
PROVIDERS: PCP Nurse Practitioner Family; Visit Provider Nurse Practitioner Family
DX: R55 Syncope and collapse (principal); H74.93 Unspecified disorder of middle ear and mastoid, bilateral

== ENCOUNTER 2025-04-09 08:24 | Outpatient (AMB) | payer OTHER, SELFPAY ==
--- OUTSIDE RECORDS SUMMARY | 2025-04-09 09:19 | XMS_ITS | Encounter Summary ---
Author Organization [facility] Address [address] [place] [address] Phone Care Team Providers Care Pressroom Worker Name Role Phone Chris Wilson MD Primary Care Provider [phone] Encounter Details Date Type Department Care Team (Late st Contact Info) Description 03/09/2017 Conversion Encounter [facility] [place] [address] [place] [address] Social History Tobacco Use Types Packs/Day Years [...] on filedocumented in this encounter Care Teams Pressroom Worker Relationship Specialty Start Date End Date Chris Wilson MD [address] [place] [address] PCP - General 03/03/17 01/10/23 documented as of this encounter
--- OUTSIDE RECORDS SUMMARY | 2025-04-09 09:19 | XMS_ITS | Clinical Summary ---
Author Organization [facility] Address [address] [place] [address] Phone Care Team Providers Care Cash Surrender Calculator Name Role Phone Unavailable Primary Care Provider Unavailabl e Allergies No known active allergies Medications Spacer/Aero-Hold ing Chambers (OPTICHAMBER KULWANT) misc OPTICHAMBER KULWANT; use 1 by Inhalation route as needed with inhaler; 09/30/2015; Active 6 Active tretinoin (Retin-A) 0.025 % creamIndications :Acne vulgaris Apply to affected areas daily as tolerated. 45 g 11 0 Active cetirizine (ZyrTEC Allergy) 10 MG tabletIndication s:Seasonal allergic rhinitis due to pollen Take 1 tablet (10 mg total) by mouth nightly as needed for allergies. 30 tablet 1 1 Active ibuprofen 200 MG capsuleIndicatio ns:Acute non intractable tension-type headache Take 3 capsules (600 mg total) by mouth every 6 (six) hours as needed for pain or fever (For fever or pain). 120 capsule 1 1 Active albuterol HFA 108 (90 Base) MCG/ACT inhalerIndicatio ns:Mild intermittent asthma with acute exacerbation Inhale 2 puffs every 4 (four) hours as needed for wheezing or shortness of breath (chest tightness, cough). 1 Units 1 Active Spacer/Aero-Hold ing Chambers (AeroChamber Plus Xander-Vu) miscIndications: Mild intermittent asthma with acute exacerbation Ut dict 1 each 1 1 Active Additional Information Patient not taking.Reported on 11/15/2022 acetaminophen 500 MG tablet TAKE 2 TABLETS BY MOUTH FOUR TIMES DAILY NEEDED FOR PAIN OR FEVER 2 Active benztropine 0.5 MG tablet TAKE 1 TABLET BY MOUTH AT BEDTIME TO AVOID ANY SIDE EFFECTS 2 Active risperiDONE 0.5 MG tablet TAKE 1 TABLET BY MOUTH AT BEDTIME TO ASSIST MOOD AND SLEEP 2 Active Active Problems Problem Noted Date Diagnosed Date Seasonal allergic rhinitis due to pollen 021 Generalized anxiety disorder 12/12/2020 Assessment & Plan (12/12/2020 9:31 PM EDT): Doing therapy with Migdalia Gilbert. Acne vulgaris 09/26/2016 Mild intermittent asthma without complication Pediatric obesity due to exc ess calories without serious comorbidity 02/03/2011 Immunizations Immunization Administration Dates Next Due COVID-19 Moderna, monovalent , 12+ years 12/24/2020,11/26/2020 DTaP 5 12/09/2005, 3,06/27/2002,05/13,03/11/2002 H1N1 07/21/2009,06/11/2009,06/10/2009 HPV, Quadrivalent 09/19/2014,08/02/2013,05/27/20 13 Hep A, ped/adol 09/19/2014,02/03/2011 Hep B, ped/adol 05/13/2002,03/11/2002,01/07/2002 Hib (PRP-T) 02/05/2003, 2,03/11/2002,01/07 IPV 12/09/2005, 2,03/11/2002,01/07 Influenza Split 05/23/2013, 2,04/18/2011,04/26 Influenza, injectable, quadrivalent 06/24/2015 Influenza, injectable, quadr ivalent, preservative free 11/15/2022,04/15/2021,04/08/2020,05/04,05/29/2018,05/15/2017,03/29/2016 ,04/07/2014 Influenza, injectable, trivalent 009,07/01/2008,04/17/2007,06/19,05/16/2006 MMR 12/09/2005,2002 Meningococcal Conj (Menactra) MCV4P 11/07/2017,1 07/27/2012 Pneumococcal Conjugate 02/05/2003,06/27/2002, Tdap 05/27/2013 Varicella 12/13/2007,2002 Family History Medical History Relation Name Comments Asthma Brother meghan Hyperlipidemia Father meghan Anxiety disorder Mother Lennie Asthma Mother Lennie Carpal tunnel syndrome Mother Lennie Breast cancer Other Diabetes Other Heart disease (Premature) Other Hypertension Other Leukemia Other Migraines Other Seizures Other Stroke Other Thyroid disease Other Asthma Sister Whitney Relation Name Status Comments Brother meghan Alive Brother: Alive and well Father meghan Alive Father: Alive a nd well Mother Lennie Alive Mother: Asthma Other Family history of Migraines, Family history of ADD/ADHD, Family history of *Dental caries, Family history of *CVA/Stroke, Family history of Hyperlipidemia, Family history of Asthma, Family history of Obesity, Family history of Leukemia, Family history of Diabetes mellitus, Family history of *Heart Disease Sister Whitney Alive Sister: Asthma Social History Tobacco Use Types Packs/Day Years Used Date Smoking Tobacco: Never Smokeless Tobacco: Never Comments:Never smoker Alcohol Use Standard Drinks/Week Comments Yes 0 (1 standard drink = 0.6 oz pur e alcohol) rare with family occassion Hunger/Food Answer Date Recorded In the last 12 months, did y ou or your family ever eat less than you felt you should because there wasn't enough money for food? No 12/05/2020 Stable Housing Answer Date Recorded Are you worried that in the next 2 months you may not have stable housing? No 12/05/2020 Transportation Concerns Answer Date Rec orded In the last 12 months, have you or your family ever had to go without healthcare because you didn't have a way to get there? No 12/05/2020 Hazards in Home Answer Date Recorded Think about the place you li ve. Do you have problems with any of the following? Pests (mice or roaches), mold, no/not working smoke detectors, water leaks, no window guards. No 2020 Financing Utilities Answer Date Recorde d In the last 12 months, has t he electric, gas, oil, or water company threatened to shut off your services in your home? No 12/05/2020 Safety at Home Answer Date Recorded Are you or your family worried about feeling saf e in your home? No 12/05/2020 Outside Support Answer Date Recorded Do you feel that you need mo re support from other people or programs to help you care for yourself or your family? No 12/05/2020 Understanding Health Concerns Answer Da te Recorded Do you need help understandi ng your or your child's healthcare needs (diagnosis, medications, plan, etc.)? No 12/05/2020 Financing Health Concerns Answer Date R ecorded In the last 12 months, was t here a time when your child needed to see a doctor or get medications or supplies but could not because of cost? No 12/05/2020 Missing School or Work Answer Date Xavier rded Did you or your child miss s chool or work because of a health problem that could have been avoided? No 12/05/2020 Comments No Sex and Gender Information Value Date Recorded Sex Assigned at Female 11/12/2019 10:41 AM EDT Legal Sex Female 5:22 PM EDT Gender Identity Other 09/08/2020 5:33 PM EST Sexual Orientation pansexual 12/07/2020 10 :51 AM EDT Last Filed Vital Signs Vital Sign Reading Time Taken Comments Blood Pressure 108/72 05/08/2021 10:57 AM EDT Pulse 74 05/08/2021 10:57 AM EDT Temperature 36.7 C (98.1 F) 11/15/2022 2:59 PM EDT Respiratory Rate - - Oxygen Saturation 96% 12/26/2020 10:31 AM EDT Inhaled Oxygen Concentration - - Weight 111 kg (245 lb) 11/15/2022 2:59 PM EDT Height 162.6 cm (5' 4 ) 04/20/2021 9:38 AM EDT Body Mass Index 42.05 04/20/2021 9:38 AM EDT Plan of Treatment Health Maintenance Due Date Last Done Comments Men B Vaccine (1 of 2 - Standard) 2017 Glucose/HbA1C 11/15/2022 09/28/2020, 10/22, 12/17/2009, Additional history exists LDL-C/Cholesterol 11/15/2022 09/28/2020, , 09/19/2014, Additional history exists DTaP,Tdap,and Td Vaccines (7 - Td or Tdap) 05/27/2023 05/27/2013, 12/09/2005, 02/05/2003, Additional history exists Influenza Vaccines (#1) 2025 11/16/19 23, 04/15/2021, 04/08/2020, Additional history exists COVID-19 Vaccine (3 2024-2 6 season) 2025 12/24/2020, 11/26/2020 Hepatitis B Vaccines Completed 05/13/2002, 03/11/2002, 01/07/2002 HIB Vaccines Completed 02/05/2003, 04/24, 03/11/2002, Additional history exists Pneumococcal Vaccine Completed 02/05/2003, 06/27/2002, 05/13/2002 IPV Vaccines Completed 12/09/2005, 04/24, 03/11/2002, Additional history exists MMR Vaccines Completed 12/09/2005, 2002 Varicella Vaccines Completed 12/13/2007, 2002 HPV Vaccines Completed 09/19/2014, 07/24, 05/27/2013 Hepatitis A Vaccines Completed 09/19/2014, 02/04/20 11 Meningococcal Vaccine Completed 11/07/2017, 013 Procedures * Due to [place] state law, this organization might not be sharing sensitive test results. Procedure Name Priority Date/Time Associated Diagnosis Comments LIPID PANEL Routine 09/28/2020 11:29 AM EST Severe obesity due to excess calories without serious comorbidity with body mass index (BMI) greater than 99th percentile for age in pediatric patient HEMOGLOBIN A1C Routine 09/28/2020 11:29 AM EST Severe obesity due to excess calories without serious comorbidity with body mass index (BMI) greater than 99th percentile for age in pediatric patient CHLAMYDIA AND GONORRHEA, AMPLIFIED Routine 11/12/2019 10:17 AM EDT Screening examination for bacterial and spirochetal disease from Last 3 Months or Most Recently Relevant to Health Maintenance Results * Due to [place] state law, this organization might not be sharing sensitive test results. * Hemoglobin A1c (09/28/2020 11:29 AM EST) Hemoglobin A1C 5.3 (4.0-5.6) % [facility] Comment: MONITORING: In known diabetic patients, hemoglobin A1c targets should be discussed with health care provider. DIAGNOSTIC USE: The [place] Diabetes Association (ADA) and the World Health Organization (WHO) recommend the use of HbA1c to diagnose diabetes using a threshold of 6.5%. Patients who have an HbA1c between 5.7% and 6.4% are considered at increased risk for developing diabetes in the future. CAUTION: Falsely low HbA1c results may be observed in patients with hemolytic anemia, homozygous forms of abnormal hemoglobin (e.g. SS, CC, SC), , recent blood loss or hemoglobin F greater than 7%. Fructosamine may be used as an alternate test in these cases. REFERENCE: ADA: Standards of Medical Care in Diabetes 2020, The Journal of Clinical and Applied Research and Education Volume 43, Supplement 1 Testing performed or reported by [facility], a Service of [facility], [address] [place] [id number] Della Biggs MD, Clerical Aide Blood 09/28/2020 11:2 9 AM EST 09/28/2020 12:37 PM EST us Chris Wilson MD LAB BLOOD ORDERABLES Final Resul t [facility] * (ABNORMAL) Lipid panel (09/28/2020 11:29 AM EST) Pathologist [facility] Cholesterol, Total 188(H) (<170) MG/DL [facility] HDL 42(L) (>45) MG/DL [facility] Non-HDL Cholesterol 146(H) (<120) MG/DL [facility] Comment: Testing performed or reported by [facility], a Service of [facility], [address] [place] [id number] Della Biggs MD, Clerical Aide Blood 09/28/2020 11:2 9 AM EST 09/28/2020 12:37 PM EST Chris Wilson MD LAB BLOOD ORDERABLES Final Resul t [facility] * Chlamydia and Gonorrhoea, Amplified (11/12/2019 10:17 AM EDT) Chlamydia Trachomatis, DNA Probe NEGATIVE (NEG) [facility] Comment: No Chlamydia Trachomatis RNA detected in this patient's sample (REFERENCE RANGE/NORMAL VALUE: NOT DETECTED) Note: This test uses outside solar sales consultant- mediated amplification method to detect rRNA from C. Trachomatis URINE GC AMP PROBE NEGATIVE (NEG) [facility] Comment: No Neisseria Gonorrhoeae RNA detected in this patient's sample (REFERENCE RANGE/NORMAL VALUE: NOT DETECTED) NOTE: This test uses outside solar sales consultant-mediated amplification method to detect rRNA from N.Gonorrhoeae. A negative result does not preclude infection. In the case of a negative urine result, testing of an endocervical(female) or urethral (male) specimen is recommended if there is high clinical suspicion of infection. Due to very high sensitivity of Nucleic Acid Amplification Test, false positive results may occur. Therefore, specimen handling is extremely important. In patients in whom the disease is unlikely, additional sample for testing should be considered after an initial positive result. The performance characteristics of this test have not been evaluated in children. The Aptima Combo2 assay is not intended for the evaluation of suspected sexual abuse or for other medico-legal indications. The ordering provider should assess if the patient had consensual sex without risk of sexual abuse. Consult the [facility] if needed. Contact phone number . Therapeutic failure or success cannot be determined with the Aptima Combo2 assay since nucleic acid may persist following appropriate antimicrobial therapy. The Centers for Disease Control and Prevention (CDC) recommends confirmatory retesting using culture or a different nucleic acid amplification test when positive results occur, if indicated. Testing performed or reported by [facility], a Service of [facility], [address], [place] [address] Kiran Painter MD, Clerical Aide Urine 11/12/2019 10:1 7 AM EDT 11/12/2019 5:01 PM EDT Chris Wilson MD LAB MICROBIOLOGY - GENERAL ORDER DANYELL Final Result [facility] from Last 3 Months or Most Recently Relevant to Health Maintenance
--- OUTSIDE RECORDS SUMMARY | 2025-04-09 09:19 | XMS_ITS | Encounter Summary ---
Author Organization [facility] Address [address] [place] [address] Phone Care Team Providers Care Flag Signaler Name Role Phone Chris Wilson MD Primary Care Provider [phone] Encounter Details Date Type Department Care Team (Late st Contact Info) Description 05/04/2016 Documentation [facility] [place] Family Medicine [address] [place], [place] [id number] Family Medicine, Physician [address] [place] [address] Social History Tobacco Use Types Packs/Day Years Used Date Smoking Tobacco: Never Assessed Comments Unknown Sex and Gender Information Value [...] on filedocumented in this encounter Care Teams Flag Signaler Relationship Specialty Start Date End Date Chris Wilson MD [address] [place] [place] [address] PCP - General 03/03/17 01/10/23 documented as of this encounter
--- OUTSIDE RECORDS SUMMARY | 2025-04-09 09:19 | XMS_ITS | Encounter Summary ---
Author Organization [facility] Address [address] [place] [address] Phone Care Team Providers Care Motion Study Technician Name Role Phone Chris Wilson MD Primary Care Provider [phone] Encounter Details Date Type Department Care Team (Late st Contact Info) Description 05/03/2016 [place] [facility] [place] [address] [place], [place] [id number] Family Medicine, Physician [address] [place] [address] Social History Tobacco Use Types Packs/Day Years [...] on filedocumented in this encounter Care Teams Motion Study Technician Relationship Specialty Start Date End Date Chris Wilson MD [address] [facility] [place] [address] PCP - General 03/03/17 01/10/23 documented as of this encounter
--- OUTSIDE RECORDS SUMMARY | 2025-04-09 09:19 | XMS_ITS | Encounter Summary ---
Author Organization [facility] Address [address] [place] [address] Phone Care Team Providers Care Electric Range Servicer Name Role Phone Chris Wilson MD Primary Care Provider Encounter Details Date Type Department Care Team (Late st Contact Info) Description 11/24/[address] [facility] [place] Family Medicine [address] [place] [address] Family Medicine, Physician [address] [place] [address] Social History Tobacco Use Types Packs/Day Years [...] on filedocumented in this encounter Care Teams Electric Range Servicer Relationship Specialty Start Date End Date Chris Wilson MD [address] [place] [address] PCP - General 03/03/17 01/10/23 documented as of this encounter
--- NOTE | 2025-04-09 09:54 | MHC.OFFVISWM ---
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 MWL BMI 42.9 Allergies No Known Allergies (No Known Allergies*) Allergy (Verified 04/09/25 09:54) Medication List - Last Reconciled 04/09/25 by Sincere Escalera MD albuterol sulfate 90 mcg/actuation (Ventolin HFA) 2 puffs inhalation Q4-6H PRN cetirizine 10 mg PO DAILY clonidine HCl 0.1 mg PO TID fluticasone propionate 50 mcg/actuation 1 spray intranasal BID prazosin 1 mg PO BEDTIME quetiapine 100 mg PO BEDTIME risperidone 1 mg PO BID valacyclovir 500 mg PO BID 3 days HPI HPI TV FLIGHT 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 DATA ACQUISITION TECHNICIAN MWL BMI 42.9: Details: Start time: 9.42am, End time: 10.27am ?I spent 40 minutes speaking with the patient on the phone plus an additional 5 minutes reviewing and updating records for a total of 45 minutes HPI Comments Details: Previous weight loss efforts: self diet and exercise Wakes 10am, Sleeps: 1am Breakfast: skips Lunch: 3/wk (sandwich or hot pocket) Dinner: 7pm (rice, frozen fruits) Snacks: 11am (crackers, cupcakes), 11pm (cereal, chips, popcorn) Exercise: has home treadmill that can incline and tracks calories Beverages: Coffee: none, Tea: none, Soda: 1-2/wk (regular Pepsi, or Coke), Juice: daily , ETOH: 1/wk (Tequila with pineapple) [facility] Medical History (Updated 04/09/25 @ 09:59 by Sincere Escalera MD) Insomnia Schizoaffective disorder Asthma Depression with anxiety Surgical History (Updated 01/07/25 @ 11:03 by Bipin Barahona MA) No pertinent past surgical history Family History (Updated 01/07/25 @ 11:04 by Bipin Barahona MA) Maternal Aunt History of breast cancer Mother Asthma Paternal Grandfather Diabetes Social History (Updated 01/07/25 @ 10:47 by Bipin Barahona MA) Household Members: Family Both parents involved: No Caregiver staying overnight: No Housing: House Are you a primary health careers instructor to a significant other at home: No Do you presently have visiting nurse or other home services: No 75 years or older and lives alone: No Alcohol intake: current Alcohol intake frequency: a few times a month Patient Tobacco Use Status: Never used Tobacco e-Cigarette/Vaping Use: Never Used Second Hand Smoke Exposure: No Substance Use Type: Marijuana Current occupational status: employed 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 Sexual orientation: Straight/Heterosexual Gender identity: Female Cognitive needs: No Hearing needs: Yes (not diagnosed) Vision needs: Yes (wear glasses) Female Reproductive History Menstrual Age of Menarche: 14 Telehealth Telehealth Telehealth Platform: Telephone Location of provider rendering services: practice address Location of patient: address on file Patient Identification confirmed using: Name, : Yes Telehealth method: voice only Patient verbally consented to treatment: Yes Patient verbally consented to billing insurance company: Yes Patient informed of any privacy concerns related to visit: Yes Minutes spent on Phone/Video with Pt.: 45 Assessment & Plan Assessment & Plan (1) Obesity, morbid, BMI 40.0-49.9: Code(s): E66.01 - Morbid (severe) obesity due to excess calories Category: Medical Plan: 1. As we discussed, based on your present BMI you are approximately 120lbs overweight. In my opinion, for any weight loss strategy to be successful should have a high probability to help you lose at least 100lbs out of 120lbs of the extra weight you carry. We discussed in detail the available therapeutic options: 1) our lifestyle intervention program that has an average weight loss of 10% in 3 months.?Some patients continue it for longer and have lost over 50lbs but this is not common. Our lifestyle program can be provided by me or by using our software manuel, the [employer] manuel. I will provide you with a link to use the manuel if you choose to do so. We use protein shakes and protein bars to replace some of the meals of the day and cover your appetite better. We will decide together the exact combination. 2) Weight loss medications: these can be used in conjunction with our lifestyle program or you may choose to use them without following a lifestyle program from my program but your own. As we discussed, your insurance requires you to use Phentermine first and only if there are contraindications in its use or side effects, we could try the injections. Also you can self pay for the first 3 months and the cost is $249 for the first month and $499 for any other month thereafter. These payments go to the drug company directly and not to us. 3) We also discussed about the lap sleeve gastrectomy. In my opinion this is the best option to solve your problem based on your situation and should be used in conjunction with the two previous options. A good strategy to make this decision to proceed with surgery, is to set some goals with the lifestyle intervention and medication options: If you don't lose at least 10lbs the first 6 weeks after starting the program or at least 10% in 3 months. ?I emphasized the importance of close follow-up, adherence to instructions and good communication. The surgery does not replace the need to change your lifestlyle which is the cause of the obesity problem. The surgery provides the motivation to try again to change your lifestyle, it reduces the appetite and make the transition to a better lifestyle easier and doubles the amount of weight you would lose compared to doing the lifestyle change without the surgery. You will need to be on a liquid diet with protein shakes for 2 weeks before surgery to maximize weight loss and boost your nutritional status to recover better from surgery and also for the first two weeks after surgery to let the stomach heal before we introduce other foods. After the first 2 weeks we will introduce protein bars and soft foods like scrambled eggs, cottage cheese and yogurt and after the 6th week will introduce meat, fish and cooked vegetables in small amounts. Over time you should be able to eat everything in small amounts. Side effects like nausea, vomiting, heartburn or abdominal pain are not common in the practice unless you are not following in the practice. This operation requires lifetime commitment to following in our practice and communication with me. You will much less weight and experience side effects if you don?t communicate or not following in the practice. Complications are rare and in our practice is about 1/10 of the national average. The patient has decided to proceed with the lifestyle program and weight loss medications 2. Please buy a body composition scale and the shakes and bars we discussed and let me know when you have them so I can give you a meal plan
[2025-04-09 10:04] VITALS: BMI 42.8
== END 2025-04-09 10:28 | disposition home or self-care (01) ==
LOC: HO.HBS 08:24
PROVIDERS: PCP Nurse Practitioner Family; Visit Provider Surgery
DX: E66.01 Morbid (severe) obesity due to excess calories (principal)
CPT/HCPCS: 99204

== ENCOUNTER 2025-05-22 12:28 | Outpatient (AMB) | payer OTHER, SELFPAY ==
--- NOTE | 2025-05-22 12:55 | A.OFFVIS_ITS ---
Vital Signs 05/22/25 12:57 Height 5 ft 4.5 in Weight 265 lb 4 oz BMI 44.8 BP 122/62 Blood Pressure Location Lt brachial Position Sitting Intake Visit Reasons: PCOS test Materials Planner Required: No Accompanied by: Mother Allergies No Known Allergies (No Known Allergies*) Allergy (Verified 05/22/25 13:04) Medication List - Last Reconciled 05/22/25 by Kimberly Pascal LPN albuterol sulfate 90 mcg/actuation (Ventolin HFA) 2 puffs inhalation Q4-6H PRN cetirizine 10 mg PO DAILY clonidine HCl 0.1 mg PO TID fluoxetine 10 mg PO DAILY fluticasone propionate 50 mcg/actuation 1 spray intranasal BID prazosin 1 mg PO BEDTIME quetiapine 100 mg PO BEDTIME risperidone 1 mg PO BID valacyclovir 500 mg PO BID 3 days Post menopausal: No Patient : No HPI Comments Details: Presenting referred from PCP regarding infrequent menstruation associated with hair growth no nipple discharge in other concerns. Last Pap smear in 08/16 was negative [facility], [facility] Medical History Insomnia Schizoaffective disorder Asthma Depression with anxiety Surgical History No pertinent past surgical history Family History Maternal Aunt History of breast cancer Mother Asthma Paternal Grandfather Diabetes Social History Household Members: Family Both parents involved: No Caregiver staying overnight: No Housing: House Are you a primary point of care specialist to a significant other at home: No Do you presently have visiting nurse or other home services: No 75 years or older and lives alone: No Alcohol intake: current Alcohol intake frequency: a few times a month Patient Tobacco Use Status: Never used Tobacco e-Cigarette/Vaping Use: Never Used Second Hand Smoke Exposure: No Substance Use Type: Marijuana Current occupational status: employed 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 Sexual orientation: Straight/Heterosexual Gender identity: Female Cognitive needs: No Hearing needs: Yes (not diagnosed) Vision needs: Yes (wear glasses) Female Reproductive History Menstrual Age of Menarche: 14 Review of Systems Const All systems reviewed & are unremarkable except as noted in HPI and below Reports as per HPI and Reports no additional complaints GI Reports no additional complaints Reports no additional complaints Assessment & Plan Assessment & Plan (1) Oligomenorrhea: Comment: With hirsutism possible PCOS Code(s): N91.5 - Oligomenorrhea, unspecified Category: Medical Plan: Will order TSH, prolactin, testosterone total and free and 17 hydroxyprogesterone with pelvic ultrasound and schedule an appointment for endometrial biopsy within 2 weeks. All questions answered, the patient verbalized understanding Orders: Orders Thyroid Stimulating Hormone Today N91.5 - Oligomenorrhea, unspecified US pelvic and transvaginal Today N91.5 - Oligomenorrhea, unspecified Testosterone, Free/Total Today N91.5 - Oligomenorrhea, unspecified 17 Hydroxyprogesterone Today N91.5 - Oligomenorrhea, unspecified Prolactin Today N91.5 - Oligomenorrhea, unspecified Coding Level of Care Code Est Pt Level 3 (39865) Diagnoses Oligomenorrhea N91.5
[2025-05-22 12:57] VITALS: BP 122/62; BMI 44.8
--- OUTSIDE RECORDS SUMMARY | 2025-05-22 15:22 | XMS_ITS | Encounter Summary ---
Author Organization [facility] Address [address] [place] [address] Phone Care Team Providers Care Low Pressure Kettle Operator Name Role Phone Chris Wilson MD Primary Care Provider [phone] Encounter Details Date Type Department Care Team (Late st Contact Info) Description 05/03/2016 Documentation [facility] [place] Family Medicine [address] [place], [place] [id number] Family Medicine, Physician [address] [place] [address] Social History Tobacco Use Types Packs/Day Years [...] on filedocumented in this encounter Care Teams Low Pressure Kettle Operator Relationship Specialty Start Date End Date Chris Wilson MD [address] [facility] [place] [address] PCP - General 03/03/17 01/10/23 documented as of this encounter
--- OUTSIDE RECORDS SUMMARY | 2025-05-22 15:22 | XMS_ITS | Encounter Summary ---
Author Organization [facility] Address [address] [place] [address] Phone Care Team Providers Care Assembler Metal Furniture Name Role Phone Chris Wilson MD Primary Care Provider [phone] Encounter Details Date Type Department Care Team (Late st Contact Info) Description 05/04/2016 Documentation [facility] [place] Medicine [address] [place], [place] [id number] Family Medicine, Physician [address] [place] [address] Social History Tobacco Use Types Packs/Day Years [...] on filedocumented in this encounter Care Teams Assembler Metal Furniture Relationship Specialty Start Date End Date Chris Wilson MD [address] [place] [address] PCP - General 03/03/17 01/10/23 documented as of this encounter
--- OUTSIDE RECORDS SUMMARY | 2025-05-22 15:22 | XMS_ITS | Encounter Summary ---
Author Organization [facility] Address [address] [place] [address] Phone Care Team Providers Care Collar Stay Fuser Tender Name Role Phone Chris Wilson MD Primary Care Provider [phone] Encounter Details Date Type Department Care Team (Late st Contact Info) Description 11/24/2016 Documentation [facility] [place] Family Medicine [address] [place] [address] Family Medicine, Physician [address] [place] [address] Social History Tobacco Use Types Packs/Day Years [...] on filedocumented in this encounter Care Teams Collar Stay Fuser Tender Relationship Specialty Start Date End Date Chris Wilson MD [address] [facility] [place] [address] PCP - General 03/03/17 01/10/23 documented as of this encounter
--- OUTSIDE RECORDS SUMMARY | 2025-05-22 15:22 | XMS_ITS | Encounter Summary ---
Author Organization [facility] Address [address] [place] [address] Phone Care Team Providers Care Individual Pension Adviser Name Role Phone Chris Wilson MD Primary Care Provider [phone] Encounter Details Date Type Department Care Team (Late st Contact Info) Description 03/09/2017 Conversion Encounter [facility] [place] [address] [place] [address] Social History Tobacco Use Types Packs/Day Years [...] on filedocumented in this encounter Care Teams Individual Pension Adviser Relationship Specialty Start Date End Date Chris Wilson MD [address] [place] [address] PCP - General 03/03/17 01/10/23 documented as of this encounter
--- OUTSIDE RECORDS SUMMARY | 2025-05-22 15:22 | XMS_ITS | Clinical Summary ---
Author Organization [facility] Address [address] [place] [address] Phone Care Team Providers Care Shrimp Pond Laborer Name Role Phone Unavailable Primary Care Provider [...] Completed 11/07/2017, 013 Procedures * Due to [place] state law, this organization might not be [...] to Health Maintenance Results * Due to [place] state law, this organization might not be sharing sensitive test results. * Hemoglobin A1c (09/28/2020 11:29 AM EST) Hemoglobin A1C 5.3 (4.0-5.6) % [facility] Comment: MONITORING: In known diabetic patients, hemoglobin A1c targets should be discussed with health care provider. DIAGNOSTIC USE: The [place] Diabetes Association (ADA) and the World Health [...] Supplement 1 Testing performed or reported by [facility], a Service of [facility], [address] [place] [address] Della Biggs MD, Eyelet Row Marker Blood 09/28/2020 11:2 9 AM EST 09/28/2020 12:37 PM EST us Chris Wilson MD LAB BLOOD ORDERABLES Final Resul t [facility] * (ABNORMAL) Lipid panel (09/28/2020 11:29 AM EST) Pathologist [facility] Cholesterol, Total 188(H) (<170) MG/DL [facility] HDL 42(L) (>45) MG/DL [facility] Non-HDL Cholesterol 146(H) (<120) MG/DL [facility] Comment: Testing performed or reported by [facility], a Service of [facility], [address] [place] [address] Della Biggs MD, Eyelet Row Marker Blood 09/28/2020 11:2 9 AM EST 09/28/2020 12:37 PM EST Chris Wilson MD LAB BLOOD ORDERABLES Final Resul t [facility] * Chlamydia and Gonorrhoea, Amplified (11/12/2019 10:17 AM EDT) Chlamydia Trachomatis, DNA Probe NEGATIVE (NEG) [facility] Comment: No Chlamydia Trachomatis RNA detected in this patient's sample (REFERENCE RANGE/NORMAL VALUE: NOT DETECTED) Note: This test uses mine car mechanic- mediated amplification method to detect rRNA from C. Trachomatis URINE GC AMP PROBE NEGATIVE (NEG) [facility] Comment: No Neisseria Gonorrhoeae RNA detected in this patient's sample (REFERENCE RANGE/NORMAL VALUE: NOT DETECTED) NOTE: This test uses mine car mechanic-mediated amplification method to detect rRNA from N.Gonorrhoeae. [...] without risk of sexual abuse. Consult the [facility] if needed. Contact phone number . Therapeutic failure or success cannot be determined with the Aptima Combo2 assay since nucleic acid may persist following appropriate antimicrobial therapy. The Centers for Disease Control and Prevention (CDC) recommends confirmatory retesting using culture or a different nucleic acid amplification test when positive results occur, if indicated. Testing performed or reported by [facility], a Service of [facility], [address], [place] [address] Kiran Painter MD, Eyelet Row Marker Urine 11/12/2019 10:1 7 AM EDT 11/12/2019 5:01 PM EDT Chris Wilson MD LAB MICROBIOLOGY - GENERAL ORDER DANYELL Final Result [facility] from Last 3 Months or Most Recently Relevant to Health Maintenance
== END 2025-05-22 14:15 | disposition home or self-care (01) ==
LOC: HO.HWS 12:28
PROVIDERS: PCP Nurse Practitioner Family; Visit Provider Obstetrics & Gynecology
DX: N91.5 Oligomenorrhea, unspecified (principal)
CPT/HCPCS: 99213

== ENCOUNTER 2025-05-22 15:18 | Outpatient (REF) | payer OTHER, SELFPAY ==
--- NOTE | ~2025-05-22 | US_ITS ---
EXAMINATION: US PELVIS CLINICAL INFORMATION: Oligomenorrhea. COMPARISON: None available. TECHNIQUE: Ultrasound of the pelvis is performed using both transabdominal and transvaginal transducers along with Doppler. Transvaginal imaging is performed due to inadequate visualization transabdominally. FINDINGS: Uterus: The uterus is anteverted , anteflexed and measures 6.9 x 2.8 x 2.8 cm The double wall endometrial thickness is 7.0 mm. There are small nabothian cysts in the cervix The uterus is smooth in contour and has normal myometrial echogenicity. No visible fibroid. Adnexa: There is no pelvic ascites or fluid collection.. Right ovary is not visualized. Left ovary measures 3.6 x 1.8 x 2.3 cm and volume 7.5 mL. Left adnexal cyst with septations measuring 8.5 x 5.4 x 6.3 cm. Graph is no fluid in the cul-de-sac. US/US pelvic and transvaginal IMPRESSION: Moderate sized left adnexal cyst produces mild mass effect on the uterus. Small bowel nabothian cyst. Right ovary is not seen. No free fluid in the cul-de-sac. Electronically signed by: Glenn Ochoa MD 05/23/2025 07:03 AM EDT
[2025-05-22 18:18] LABS: Thyroid Stimulating Hormone 1.64 uIU/mL (0.32-4.0)
[2025-05-28 20:39] LABS: Testosterone, Free 10.5 pg/mL (0.1-6.4)
== END 2025-05-22 15:19 | disposition home or self-care (01) ==
LOC: HO.US 15:18
PROVIDERS: PCP Nurse Practitioner Family; Visit Provider Obstetrics & Gynecology
DX: N91.5 Oligomenorrhea, unspecified (principal)
CPT/HCPCS: 36415; 76830; 76856; 83498; 84146; 84402; 84403; 84443; 99212

== ENCOUNTER → 2025-05-22 15:24 | Outpatient (BNV) | payer OTHER, SELFPAY | PROVIDERS: PCP Nurse Practitioner Family; Visit Provider Radiology Diagnostic Radiology | DX: N83.292 Other ovarian cyst, left side (principal); N91.5 Oligomenorrhea, unspecified | CPT/HCPCS: 76830; 76856 ==

== ENCOUNTER 2025-05-26 09:26 | Outpatient (AMB) | payer OTHER, SELFPAY ==
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
[2025-05-26 09:28] VITALS: BP 128/82; PULSE 84; O2SAT 96; BMI 44.9
--- OUTSIDE RECORDS SUMMARY | 2025-05-26 10:36 | XMS_ITS | Encounter Summary ---
Author Organization [facility] Address [address] [place] [address] Phone Care Team Providers Care Farm Equipment Mechanic Apprentice Name Role Phone Chris Wilson MD Primary Care Provider [phone] Encounter Details Date Type Department Care Team (Late st Contact Info) Description 11/24/2016 Documentation [facility] [place] Family Medicine [address] [place] [address] Family Medicine, Physician [address] [place] [address] Social History Tobacco Use Types Packs/Day Years [...] on filedocumented in this encounter Care Teams Farm Equipment Mechanic Apprentice Relationship Specialty Start Date End Date Chris Wilson MD [address] [facility] [address] PCP - General 03/03/17 01/10/23 documented as of this encounter
--- OUTSIDE RECORDS SUMMARY | 2025-05-26 10:36 | XMS_ITS | Encounter Summary ---
Author Organization [facility] Address [address] [place] [address] Phone Care Team Providers Care Advertising Sales Associate Name Role Phone Chris Wilson MD Primary Care Provider [phone] Encounter Details Date Type Department Care Team (Late st Contact Info) Description 03/09/2017 Conversion Encounter [facility] [place] [address] [place] [address] Social History Tobacco Use Types Packs/Day Years [...] on filedocumented in this encounter Care Teams Advertising Sales Associate Relationship Specialty Start Date End Date Chris Wilson MD [address] [place] [address] PCP - General 03/03/17 01/10/23 documented as of this encounter
--- OUTSIDE RECORDS SUMMARY | 2025-05-26 10:36 | XMS_ITS | Clinical Summary ---
Author Organization [facility] Address [address] [place] [address] Phone Care Team Providers Care Paymaster Of Purses Name Role Phone Unavailable Primary Care Provider [...] Completed 11/07/2017, 013 Procedures * Due to [place] state law, this organization might not be [...] to Health Maintenance Results * Due to [place] state law, this organization might not be sharing sensitive test results. * Hemoglobin A1c (09/28/2020 11:29 AM EST) Hemoglobin A1C 5.3 (4.0-5.6) % [facility] Comment: MONITORING: In known diabetic patients, hemoglobin A1c targets should be discussed with health care provider. DIAGNOSTIC USE: The [place] Diabetes Association (ADA) and the World Health [...] Supplement 1 Testing performed or reported by [facility], a Service of [facility], [address] [place] [address] Della Biggs MD, Simplex Operator Blood 09/28/2020 11:2 9 AM EST 09/28/2020 12:37 PM EST us Chris Wilson MD LAB BLOOD ORDERABLES Final Resul t [facility] * (ABNORMAL) Lipid panel (09/28/2020 11:29 AM EST) Pathologist [facility] Cholesterol, Total 188(H) (<170) MG/DL [facility] HDL 42(L) (>45) MG/DL [facility] Non-HDL Cholesterol 146(H) (<120) MG/DL [facility] Comment: Testing performed or reported by [facility], a Service of [facility], [address] [place] [address] Della Biggs MD, Simplex Operator Blood 09/28/2020 11:2 9 AM EST 09/28/2020 12:37 PM EST Chris Wilson MD LAB BLOOD ORDERABLES Final Resul t [facility] * Chlamydia and Gonorrhoea, Amplified (11/12/2019 10:17 AM EDT) Chlamydia Trachomatis, DNA Probe NEGATIVE (NEG) [facility] Comment: No Chlamydia Trachomatis RNA detected in this patient's sample (REFERENCE RANGE/NORMAL VALUE: NOT DETECTED) Note: This test uses vehicle return associate- mediated amplification method to detect rRNA from C. Trachomatis URINE GC AMP PROBE NEGATIVE (NEG) [facility] Comment: No Neisseria Gonorrhoeae RNA detected in this patient's sample (REFERENCE RANGE/NORMAL VALUE: NOT DETECTED) NOTE: This test uses vehicle return associate-mediated amplification method to detect rRNA from N.Gonorrhoeae. [...] without risk of sexual abuse. Consult the [facility] if needed. Contact phone number . Therapeutic failure or success cannot be determined with the Aptima Combo2 assay since nucleic acid may persist following appropriate antimicrobial therapy. The Centers for Disease Control and Prevention (CDC) recommends confirmatory retesting using culture or a different nucleic acid amplification test when positive results occur, if indicated. Testing performed or reported by [facility], a Service of [facility], [address], [place] [address] Kiran Painter MD, Simplex Operator Urine 11/12/2019 10:1 7 AM EDT 11/12/2019 5:01 PM EDT Chris Wilson MD LAB MICROBIOLOGY - GENERAL ORDER DANYELL Final Result [facility] from Last 3 Months or Most Recently Relevant to Health Maintenance
--- OUTSIDE RECORDS SUMMARY | 2025-05-26 10:36 | XMS_ITS | Encounter Summary ---
Author Organization [facility] Address [address] [place] [address] Phone Care Team Providers Care Civil Engineering Manager Name Role Phone Chris Wilson MD Primary Care Provider [phone] Encounter Details Date Type Department Care Team (Late st Contact Info) Description 05/03/2016 Documentation [facility] [place] Family Medicine [address] [place], [place] [id number] Family Medicine, Physician [address] [place] [address] Social History Tobacco Use Types Packs/Day Years [...] on filedocumented in this encounter Care Teams Civil Engineering Manager Relationship Specialty Start Date End Date Chris Wilson MD [address] [place] [address] PCP - General 03/03/17 01/10/23 documented as of this encounter
--- OUTSIDE RECORDS SUMMARY | 2025-05-26 10:36 | XMS_ITS | Encounter Summary ---
Author Organization [facility] Address [address] [place] [address] Phone Care Team Providers Care Budget Director Name Role Phone Chris Wilson MD Primary Care Provider [phone] Encounter Details Date Type Department Care Team (Late st Contact Info) Description 05/04/2016 Documentation [facility] [place] Family Medicine [address] [place], [place] [id number] Family Medicine, Physician [address] [place] [address] Social History Tobacco Use Types Packs/Day Years [...] on filedocumented in this encounter Care Teams Budget Director Relationship Specialty Start Date End Date Chris Wilson MD [address] [place] [address] PCP - General 03/03/17 01/10/23 documented as of this encounter
== END 2025-05-26 10:35 | disposition home or self-care (01) ==
LOC: HO.HSMS 09:26
PROVIDERS: PCP Nurse Practitioner Family; Visit Provider Psychiatry & Neurology Neurology
DX: R55 Syncope and collapse (principal); G47.00 Insomnia, unspecified; R06.83 Snoring; G47.10 Hypersomnia, unspecified
CPT/HCPCS: 99204

== ENCOUNTER → 2025-05-26 09:26 | Outpatient (BNVA) | payer OTHER, SELFPAY | PROVIDERS: PCP Nurse Practitioner Family; Visit Provider Psychiatry & Neurology Neurology | DX: N83.292 Other ovarian cyst, left side (principal); R79.89 Other specified abnormal findings of blood chemistry; R55 Syncope and collapse; G47.00 Insomnia, unspecified; R06.83 Snoring; R40.0 Somnolence | CPT/HCPCS: 99202; 99212 ==

== ENCOUNTER 2025-05-26 12:09 | Outpatient (AMB) | payer OTHER, SELFPAY ==
--- NOTE | 2025-05-26 12:16 | A.OFFVIS_ITS ---
Intake Visit Reasons: complex ovarian cyst Allergies No Known Allergies (No Known Allergies*) Allergy (Verified 05/26/25 09:28) HPI Comments Details: Presenting for follow-up. Pelvic ultrasound showed the following: Uterus: The uterus is anteverted , anteflexed and measures 6.9 x 2.8 x 2.8 cm The double wall endometrial thickness is 7.0 mm. There are small nabothian cysts in the cervix The uterus is smooth in contour and has normal myometrial echogenicity. No visible fibroid. Adnexa: There is no pelvic ascites or fluid collection.. Right ovary is not visualized. Left ovary measures 3.6 x 1.8 x 2.3 cm and volume 7.5 mL. Left adnexal cyst with septations measuring 8.5 x 5.4 x 6.3 cm. Graph is no fluid in the cul-de-sac. US/US pelvic and transvaginal IMPRESSION: Moderate sized left adnexal cyst produces mild mass effect on the uterus. Small bowel nabothian cyst. Right ovary is not seen. No free fluid in the cul-de-sac. Prolactin was 40.1 [facility] Medical History (Updated 05/26/25 @ 12:29 by Andrew Domingo MD) Hypersomnia Snoring Insomnia Schizoaffective disorder Asthma Depression with anxiety Surgical History No pertinent past surgical history Family History Maternal Aunt History of breast cancer Mother Asthma Paternal Grandfather Diabetes Social History Household Members: Family Both parents involved: No Caregiver staying overnight: No Housing: House Are you a primary health care coach to a significant other at home: No Do you presently have visiting nurse or other home services: No 75 years or older and lives alone: No Alcohol intake: current Alcohol intake frequency: a few times a month Patient Tobacco Use Status: Never used Tobacco e-Cigarette/Vaping Use: Never Used Second Hand Smoke Exposure: No Substance Use Type: Marijuana Current occupational status: employed 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 Sexual orientation: Straight/Heterosexual Gender identity: Female Cognitive needs: No Hearing needs: Yes (not diagnosed) Vision needs: Yes (wear glasses) Female Reproductive History Menstrual Age of Menarche: 14 Review of Systems Const All systems reviewed & are unremarkable except as noted in HPI and below Reports as per HPI and Reports no additional complaints GI Reports no additional complaints Reports no additional complaints Assessment & Plan Assessment & Plan (1) Complex ovarian cyst: Comment: 8.5 cm Code(s): N83.299 - Other ovarian cyst, unspecified side Category: Medical Plan: Discussed with the patient the complex ovarian cyst by ultrasound. Discussed with the patient the Ultrasound findings, the main limitation of transvaginal ultrasonography alone as a diagnostic tool to distinguish benign from malignant masses relates to its lack of specificity and low positive predictive value for cancer. The differential diagnosis discussed with the patient includes the following but not limited to: benign and malignant gynecological and non-gynecological causes. Will order pelvic MRI with contrast with tumor markers including CA 125, CEA, CA 19-9, inhibin, alpha fetoprotein and LDH (2) Elevated prolactin level: Code(s): R79.89 - Other specified abnormal findings of blood chemistry Category: Medical Plan: Discussed with the patient the results of the elevated prolactin, recommended repeat prolactin fasting for 3 days without any nipple stimulation. Order p laced Orders: Orders Carbohydrate Antigen 19-9 Today N83.299 - Other ovarian cyst, unspecified side Lactate Dehydrogenase Today N83.299 - Other ovarian cyst, unspecified side MR pelvis wo/w con Today N83.299 - Other ovarian cyst, unspecified side Inhibin A Today N83.299 - Other ovarian cyst, unspecified side Inhibin B Today N83.299 - Other ovarian cyst, unspecified side CA-125 Today N83.299 - Other ovarian cyst, unspecified side Carcinoembryonic Antigen Today N83.299 - Other ovarian cyst, unspecified side Alpha Fetoprotein Today N83.299 - Other ovarian cyst, unspecified side Coding Level of Care Code Est Pt Level 3 (25492) Diagnoses Complex ovarian cyst N83.299 Elevated prolactin level R79.89
== END 2025-05-26 13:17 | disposition home or self-care (01) ==
LOC: HO.HWS 12:10
PROVIDERS: PCP Nurse Practitioner Family; Visit Provider Obstetrics & Gynecology
DX: N83.299 Other ovarian cyst, unspecified side (principal); R79.89 Other specified abnormal findings of blood chemistry
CPT/HCPCS: 99213

== ENCOUNTER 2025-07-02 10:01 | Outpatient (REF) | payer OTHER, SELFPAY ==
--- NOTE | ~2025-07-02 | MR_ITS ---
EXAMINATION: MR PELVIS WITHOUT AND WITH CONTRAST CLINICAL INFORMATION: N83.299. Ovarian cyst. COMPARISON: Correlated to pelvic ultrasound dated May 22, 2025 reporting an 8.5 cm septated cyst, left adnexa. TECHNIQUE: Multiplanar, multisequence MRI pelvis without and following the IV contrast administration total of 10 cc gadolinium based (Gadavist) without reported immediate complications. FINDINGS: There is a 8.7 x 6.1 x 5.5 cm, well-defined, thin-walled, nonenhancing, nonseptated fluid signal characteristic lesion centered in the left midline of the pelvis medial and inferior to the left ovary and to the right of the right ovary. Right ovary measures 6 x 3 x 2.5 cm. Scattered follicles. Left ovary measures 5.3 x 2.7 x 2.5 cm. Scattered follicles. The uterus measures 6 x 4 x 3 cm in anteversion flexion position slightly to the right of the pelvis. The cervix measures 2.5 cm. No abnormal enhancement within the myometrium. Junctional zone measures 3 mm in maximal thickness. No free fluid in the cul-de-sac. The flow-void signal within the main vessels is normal. Nonspecific prominent inguinal lymph nodes. No lymphadenopathy in the christophe iliac. There is a central broad-based herniated disc at L5-S1 abutting the S1 nerve roots on the lateral recesses. Degenerative changes in the sacroiliac joints. MR/MR pelvis wo/w con IMPRESSION: 8.7 x 6.1 x 5.5 cm simple cyst, left paraovarian. Central disc herniation at L5-S1 abutting the S1 nerve roots. Electronically signed by: Artem Newby MD 07/02/2025 12:02 PM [facility]
--- NOTE | ~2025-07-02 | MR_ITS ---
EXAMINATION: MR BRAIN WITHOUT CONTRAST CLINICAL INFORMATION: R 55. Syncope and collapse. COMPARISON: Correlated to CT dated November 08, 2021. TECHNIQUE: MRI of the brain was obtained using routine sequences without contrast. FINDINGS: No restricted diffusion. No acute intracranial hemorrhage, mass effect, midline shift, hydrocephalus or herniation. Babin-white matter differentiation is normal. Posterior cranial fossa contents demonstrated 4 mm descensus of the cerebellar tonsils below foramen magnum. Sellar/suprasellar region is normal. Flow-void signal within the main cerebral vessels is normal. No signal abnormality or volume loss in the hippocampi. 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 MR/MR head/brain wo con IMPRESSION: Low-lying cerebellar tonsils. No acute brain abnormality. Electronically signed by: Artem Newby MD 07/02/2025 11:52 AM [facility]
[2025-07-02 13:52] LABS: Carcinoembryonic Antigen 2.20 ng/mL
[2025-07-03 09:28] LABS: CA-125 12 U/mL (<35)
== END 2025-07-02 10:02 ==
LOC: HO.MRI 10:01
PROVIDERS: Absent Provider Obstetrics & Gynecology; PCP Nurse Practitioner Family; Visit Provider Psychiatry & Neurology Neurology
DX: R55 Syncope and collapse (principal); N83.299 Other ovarian cyst, unspecified side; N91.5 Oligomenorrhea, unspecified
CPT/HCPCS: 36415; 70551; 72197; 82105; 82378; 83520; 83615; 84146; 86301; 86304; 86336; A9585

== ENCOUNTER → 2025-07-02 10:13 | Outpatient (BNV) | payer OTHER, SELFPAY | PROVIDERS: Absent Provider Obstetrics & Gynecology; PCP Nurse Practitioner Family; Visit Provider Radiology Diagnostic Radiology | DX: N83.292 Other ovarian cyst, left side (principal); Q04.8 Other specified congenital malformations of brain | CPT/HCPCS: 70551; 72197 ==

== ENCOUNTER 2025-07-07 08:19 | Outpatient (AMB) | payer OTHER, SELFPAY ==
[2025-07-07 08:26] VITALS: BP 118/88; BMI 44.8
--- NOTE | 2025-07-07 08:26 | A.OFFVIS_ITS ---
Vital Signs 07/07/25 08:26 Height 5 ft 4.5 in Weight 265 lb BMI 44.8 BP 118/88 Intake Visit Reasons: MRI results/elevated prolactin level Miner Placer Required: Yes Miner Placer Language: Tool And Die Technician Services: Miner Placer Present (in person) Miner Placer Name: Asmita RIOS Information Interpreted: non-clinical & clinical Accompanied by: Mother Allergies No Known Allergies (No Known Allergies*) Allergy (Verified 07/07/25 08:31) HPI Comments Details: Presenting for pelvic MRI follow-up regarding 8.5 cm complex ovarian cyst seen on pelvic ultrasound. Pelvic MRI done on 07/02/2025 showed the following: IMPRESSION: 8.7 x 6.1 x 5.5 cm simple cyst, left paraovarian. Central disc herniation at L5-S1 abutting the S1 nerve roots. Pelvic ultrasound done on 05/23/2025 showed the following: Uterus: The uterus is anteverted , anteflexed and measures 6.9 x 2.8 x 2.8 cm The double wall endometrial thickness is 7.0 mm. There are small nabothian cysts in the cervix The uterus is smooth in contour and has normal myometrial echogenicity. No visible fibroid. Adnexa: There is no pelvic ascites or fluid collection.. Right ovary is not visualized. Left ovary measures 3.6 x 1.8 x 2.3 cm and volume 7.5 mL. Left adnexal cyst with septations measuring 8.5 x 5.4 x 6.3 cm. Graph is no fluid in the cul-de-sac. US/US pelvic and transvaginal IMPRESSION: Moderate sized left adnexal cyst produces mild mass effect on the uterus. Small bowel nabothian cyst. Right ovary is not seen. No free fluid in the cul-de-sac Prolactin on 05/23/2025 was 40.1 repeated on 07/02/2025 with 35 TSH within CA 125, CEA, CA 19-9, alpha fetoprotein LDH negative inhibin still pending [facility] Medical History (Updated 07/07/25 @ 08:39 by Andrew Domingo MD) Hypersomnia Snoring Insomnia Schizoaffective disorder Asthma Depression with anxiety Surgical History No pertinent past surgical history Family History Maternal Aunt History of breast cancer Mother Asthma Paternal Grandfather Diabetes Social History Household Members: Family Both parents involved: No Caregiver staying overnight: No Housing: House Are you a primary critical care nurse specialist to a significant other at home: No Do you presently have visiting nurse or other home services: No 75 years or older and lives alone: No Alcohol intake: current Alcohol intake frequency: a few times a month Patient Tobacco Use Status: Never used Tobacco e-Cigarette/Vaping Use: Never Used Second Hand Smoke Exposure: No Substance Use Type: Marijuana Current occupational status: employed Current occupation: [employer] Sexual orientation: Straight/Heterosexual Gender identity: Female Cognitive needs: No Hearing needs: Yes (not diagnosed) Vision needs: Yes (wear glasses) Female Reproductive History Menstrual Age of Menarche: 14 Review of Systems Const All systems reviewed & are unremarkable except as noted in HPI and below Reports as per HPI and Reports no additional complaints GI Reports no additional complaints Reports no additional complaints Physical Exam Vital Signs: Last Vital Signs BP 118/88 07/07/25 08:26 BMI result Body Mass Index 44.8 Assessment & Plan Assessment & Plan (1) Ovarian cyst: Code(s): N83.209 - Unspecified ovarian cyst, unspecified side Category: Medical Plan: Discussed with the patient the finding on MRI and pelvic ultrasound 8.5 cm cyst. Will refer to Gyne Onc for further management (2) Elevated prolactin level: Code(s): R79.89 - Other specified abnormal findings of blood chemistry Category: Medical Plan: Discussed with the patient has elevated prolactin levels with normal L TSH, referral to endocrinology placed (3) Lumbosacral disc herniation: Code(s): M51.27 - Other intervertebral disc displacement, lumbosacral region Category: Medical Plan: Discussed with the patient the finding MRI, recommended calling her PCP for further management Orders: Referrals Endocrinology Referral R79.89 - Other specified abnormal findings of blood chemistry Gynecologic Oncology Referral N83.209 - Unspecified ovarian cyst, unspecified side Coding Level of Care Code Est Pt Level 3 (51724) Diagnoses Ovarian cyst N83.209 Elevated prolactin level R79.89 Lumbosacral disc herniation M51.27
== END 2025-07-07 11:01 | disposition home or self-care (01) ==
LOC: HO.HWS 08:20
PROVIDERS: PCP Nurse Practitioner Family; Visit Provider Obstetrics & Gynecology
DX: N83.209 Unspecified ovarian cyst, unspecified side (principal); R79.89 Other specified abnormal findings of blood chemistry; M51.27 Other intervertebral disc displacement, lumbosacral region
CPT/HCPCS: 99213

== ENCOUNTER → 2025-07-07 08:19 | Outpatient (BNVA) | payer OTHER, SELFPAY | PROVIDERS: PCP Nurse Practitioner Family; Visit Provider Obstetrics & Gynecology | DX: N83.292 Other ovarian cyst, left side (principal); R79.89 Other specified abnormal findings of blood chemistry; M51.27 Other intervertebral disc displacement, lumbosacral region | CPT/HCPCS: 99212 ==

== ENCOUNTER 2025-07-14 14:25 | Outpatient (REF) | payer OTHER, SELFPAY ==
--- NOTE | 2025-07-14 15:01 | EEG_ITS ---
History: 24y/o female with schizoaffective disorder comes for evaluation of possible seizures. she describes episodes of blacking out- periods of unawareness, altered consciousness for past 2-3 years which she thought were panic attacks but her psychiatrist wants to r/o seizures. The last episode was 2mths ago. she could not feel her body and does not remember what happened. Her mother who was the witness said that she had a blank face and not responding. No shaking episodes. she was confused for 2 hrs. The episodes are usually similar- confused , blank face lasting 2 hrs . She has 1/ 2 mths Milder episodes - few seconds of loss of awareness. Medication: albuterol sulfate, cetirizine, clonidine HCl, fluoxetine, fluticasone propionate, lorazepam, prazosin, quetiapine, risperidone, valacyclovir Technical Description Photic Stimulation: completed Hyperventilation: omitted Behavioral State: pleasant State of Consciousness: awake and sleep Skull Defect: none Sedation: none Handedness: right Duration: 32 min 32 sec Foundry Manager Comments: Last Meal: 07/13/25 Description: This is a 16 channel EEG with an EKG lead. Patient is reported awake and asleep during the tracing. Background EEG rhythm is low amplitude fast with no obvious asymmetry or paroxysmal tendency. Photic stimulation does not produce any significant driving. Hyperventilation is not performed. Cardiac lead does not reveal any significant abnormality. Patient transitioned into drowsiness with no obvious abnormality. Impression: No significant abnormality noted on this EEG. [facility]
--- OUTSIDE RECORDS SUMMARY | 2025-07-14 17:51 | XMS_ITS | Encounter Summary ---
Author Organization [facility] Address [address] [place] [address] Phone Care Team Providers Care Intranet Developer Name Role Phone Chris Wilson MD Primary Care Provider [phone] Encounter Details Date Type Department Care Team (Late st Contact Info) Description 03/09/2017 Conversion Encounter [facility] [place] [address] [place] [address] Social History Tobacco Use Types Packs/Day Years [...] on filedocumented in this encounter Care Teams Intranet Developer Relationship Specialty Start Date End Date Chris Wilson MD [address] [place] [address] PCP - General 03/03/17 01/10/23 documented as of this encounter
--- OUTSIDE RECORDS SUMMARY | 2025-07-14 17:51 | XMS_ITS | Encounter Summary ---
Author Organization [facility] Address [address] [place] [address] Phone Care Team Providers Care Bleach Tester Name Role Phone Chris Wilson MD Primary Care Provider [phone] Encounter Details Date Type Department Care Team (Late st Contact Info) Description 11/24/[address] [facility] [place] Family Medicine [address] [place] [address] Family Medicine, Physician [address] [place] [address] Social History Tobacco Use Types Packs/Day Years [...] on filedocumented in this encounter Care Teams Bleach Tester Relationship Specialty Start Date End Date Chris Wilson MD [address] [place] [address] PCP - General 03/03/17 01/10/23 documented as of this encounter
--- OUTSIDE RECORDS SUMMARY | 2025-07-14 17:52 | XMS_ITS | Encounter Summary ---
Author Organization [facility] Address [address] [place] [address] Phone Care Team Providers Care Lacquer Shader Name Role Phone Chris Wilson MD Primary Care Provider [phone] Encounter Details Date Type Department Care Team (Late st Contact Info) Description 05/04/2016 Documentation [facility] [place] Family Medicine [address] [place], [place] [id number] Family Medicine, Physician [address] [place] [address] Social History Tobacco Use Types Packs/Day Years [...] on filedocumented in this encounter Care Teams Lacquer Shader Relationship Specialty Start Date End Date Chris Wilson MD [address] [place] [address] PCP - General 03/03/17 01/10/23 documented as of this encounter
--- OUTSIDE RECORDS SUMMARY | 2025-07-14 17:52 | XMS_ITS | Clinical Summary ---
Author Organization [facility] Address [address] [place] [address] Phone Care Team Providers Care Radio Host Name Role Phone Unavailable Primary Care Provider [...] AM EST) Hemoglobin A1C 5.3 (4.0-5.6) % [facility] Comment: MONITORING: In known diabetic patients, hemoglobin A1c targets should be discussed with health care provider. DIAGNOSTIC USE: The [place] Diabetes Association (ADA) and the World Health [...] Supplement 1 Testing performed or reported by [facility], a Service of [facility], [address] [place] [id number] Della Biggs MD, Cnc Supervisor Blood 09/28/2020 11:2 9 AM EST 09/28/2020 12:37 PM EST us Chris Wilson MD LAB BLOOD ORDERABLES Final Resul t [facility] * (ABNORMAL) Lipid panel (09/28/2020 11:29 AM EST) Pathologist [facility] Cholesterol, Total 188(H) (<170) MG/DL [facility] HDL 42(L) (>45) MG/DL [facility] Non-HDL Cholesterol 146(H) (<120) MG/DL [facility] Comment: Testing performed or reported by [facility], a Service of [facility], [address] [place] [id number] Della Biggs MD, Cnc Supervisor Blood 09/28/2020 11:2 9 AM EST 09/28/2020 12:37 PM EST Chris Wilson MD LAB BLOOD ORDERABLES Final Resul t [facility] * Chlamydia and Gonorrhoea, Amplified (11/12/2019 10:17 AM EDT) Chlamydia Trachomatis, DNA Probe NEGATIVE (NEG) [facility] Comment: No Chlamydia Trachomatis RNA detected in this patient's sample (REFERENCE RANGE/NORMAL VALUE: NOT DETECTED) Note: This test uses grounds cleaner- mediated amplification method to detect rRNA from C. Trachomatis URINE GC AMP PROBE NEGATIVE (NEG) [facility] Comment: No Neisseria Gonorrhoeae RNA detected in this patient's sample (REFERENCE RANGE/NORMAL VALUE: NOT DETECTED) NOTE: This test uses grounds cleaner-mediated amplification method to detect rRNA from N.Gonorrhoeae. [...] without risk of sexual abuse. Consult the [facility] if needed. Contact phone number . Therapeutic failure or success cannot be determined with the Aptima Combo2 assay since nucleic acid may persist following appropriate antimicrobial therapy. The Centers for Disease Control and Prevention (CDC) recommends confirmatory retesting using culture or a different nucleic acid amplification test when positive results occur, if indicated. Testing performed or reported by [facility], a Service of [facility], [address], [place] [address] Kiran Painter MD, Cnc Supervisor Urine 11/12/2019 10:1 7 AM EDT 11/12/2019 5:01 PM EDT Chris Wilson MD LAB MICROBIOLOGY - GENERAL ORDER DANYELL Final Result [facility] from Last 3 Months or Most Recently Relevant to Health Maintenance
--- OUTSIDE RECORDS SUMMARY | 2025-07-14 17:52 | XMS_ITS | Encounter Summary ---
Author Organization [facility] Address [address] [place] [address] Phone Care Team Providers Care Wardrobe Coordinator Name Role Phone Chris Wilson MD Primary Care Provider [phone] Encounter Details Date Type Department Care Team (Late st Contact Info) Description 05/03/2016 Documentation [facility] [place] [address] [place], [place] [id number] Family Medicine, Physician [address] [place] [address] Social History Tobacco Use Types Packs/Day Years [...] on filedocumented in this encounter Care Teams Wardrobe Coordinator Relationship Specialty Start Date End Date Chris Wilson MD [address] [place] [address] PCP - General 03/03/17 01/10/23 documented as of this encounter
== END 2025-07-14 14:26 | disposition home or self-care (01) ==
LOC: HO.NEURO 14:25
PROVIDERS: PCP Nurse Practitioner Family; Visit Provider Psychiatry & Neurology Neurology
DX: R55 Syncope and collapse (principal)
CPT/HCPCS: 95819

== ENCOUNTER → 2025-07-14 15:01 | Outpatient (BNV) | payer OTHER, SELFPAY | PROVIDERS: PCP Nurse Practitioner Family; Visit Provider Psychiatry & Neurology Neurology | DX: R55 Syncope and collapse (principal) | CPT/HCPCS: 95819 ==